=== PATIENT | female | born 1980 | race Caucasian/White ===

== ENCOUNTER → 2020-05-13 13:37 | Outpatient (CLI) | payer OTHER, SELFPAY ==
--- NOTE | ~2020-05-13 | MM_ITS ---
EXAMINATION: MM screening ana maría BI w murray HISTORY: Screening mammogram TECHNIQUE: Craniocaudal and mediolateral oblique 3-D tomosynthesis images were obtained and synthetic 2-D images were generated. CAD analysis was submitted and interpreted. COMPARISON: 01/25/2019 bilateral digital screening mammogram BREAST PARENCHYMAL COMPOSITION: There are scattered areas of fibroglandular density. FINDINGS: There is stable fibroglandular asymmetry, the breast parenchyma uniformly mildly increased in prominence compared to 01/25/2019. There is no evidence of suspicious mass, calcification, or sara ectural distortion to suggest malignancy in either breast. There has been no suspicious interval martin ge. IMPRESSION: 1. No mammographic evidence of malignancy. 2. Recommend routine screening mammography in one year. BI-RADS Category 2: Benign finding(s). Reviewed, dictated and finalized at location A.
== END ==
PROVIDERS: PCP Nurse Practitioner Family; Visit Provider Nurse Practitioner Obstetrics & Gynecology
DX: Z12.31 Encounter for screening mammogram for malignant neoplasm of breast (principal)
CPT/HCPCS: 77063; 77067

== ENCOUNTER → 2021-04-05 15:23 | Outpatient (CLI) | payer OTHER, SELFPAY ==
--- NOTE | ~2021-04-05 | US_ITS ---
EXAMINATION: US thyroid DATE: 04/05/2021 15:41 INDICATION: Nontoxic goiter, unspecified. TECHNIQUE: Multiple ultrasound images of the thyroid were obtained. COMPARISON: None. FINDINGS: The right thyroid lobe measures 4.3 x 1.5 x 1.5 cm. The left thyroid lobe measures 4.2 x 1.6 x 1.3 c m. The thyroid demonstrates diffusely heterogeneous hypoechogenicity. Vascularity is normal. IMPRESSION: 1. Heterogeneous thyroid, likely chronic lymphocytic (Paige) thyroiditis. Reviewed, dictated and finalized at location A.
== END ==
PROVIDERS: Visit Provider Internal Medicine Endocrinology, Diabetes & Metabolism
DX: E04.9 Nontoxic goiter, unspecified (principal)
CPT/HCPCS: 76536

== ENCOUNTER → 2021-05-16 12:52 | Outpatient (CLI) | payer OTHER, SELFPAY ==
--- NOTE | ~2021-05-16 | MM_ITS ---
EXAMINATION: MM screening ana maría BI w murray HISTORY: Screening mammogram TECHNIQUE: Craniocaudal and mediolateral oblique 3-D tomosynthesis images were obtained and synthetic 2-D images were generated. CAD analysis was submitted and interpreted. COMPARISON: 05/13/2020, 01/25/2019 bilateral digital screening mammogram examinations BREAST PARENCHYMAL COMPOSITION: There are scattered areas of fibroglandular density. FINDINGS: There is no evidence of suspicious mass, calcification, or architectural distortion to sugg est malignancy in either breast. There has been no suspicious interval change. IMPRESSION: 1. No mammographic evidence of malignancy. 2. Recommend routine screening mammography in one year. BI-RADS Category 1: Negative Reviewed, dictated and finalized at location A.
== END ==
PROVIDERS: PCP Nurse Practitioner Family; Visit Provider Nurse Practitioner Obstetrics & Gynecology
DX: Z12.31 Encounter for screening mammogram for malignant neoplasm of breast (principal)
CPT/HCPCS: 77063; 77067

== ENCOUNTER → 2022-10-14 11:22 | Outpatient (CLI) | payer OTHER, SELFPAY ==
--- NOTE | ~2022-10-14 | MM_ITS ---
EXAMINATION: MM screening ana maría BI w murray HISTORY: Screening mammogram TECHNIQUE: Craniocaudal and mediolateral oblique 3-D tomosynthesis images were obtained and synthetic 2-D images were generated. CAD analysis was submitted and interpreted. COMPARISON: 05/16/2021, 05/13/2020, 01/25/2019 bilateral screening mammogram examinations BREAST PARENCHYMAL COMPOSITION: There are scattered areas of fibroglandular density. FINDINGS: There is no evidence of suspicious mass, calcification, or architectural distortion to sugg est malignancy in either breast. There has been no suspicious interval change. IMPRESSION: 1. No mammographic evidence of malignancy. 2. Recommend routine screening mammography in one year. BI-RADS Category 1: Negative Reviewed, dictated and finalized at location A. 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
== END ==
PROVIDERS: PCP Nurse Practitioner Obstetrics & Gynecology; Visit Provider Nurse Practitioner Obstetrics & Gynecology
DX: Z12.31 Encounter for screening mammogram for malignant neoplasm of breast (principal)
CPT/HCPCS: 77063; 77067

== ENCOUNTER → 2023-10-20 07:44 | Outpatient (CLI) | payer OTHER, SELFPAY ==
--- NOTE | ~2023-10-20 | MM_ITS ---
EXAMINATION: MM screening ana maría BI w murray HISTORY: Screening TECHNIQUE: Craniocaudal and mediolateral oblique 3-D tomosynthesis images were obtained and synthetic 2-D images were generated. CAD analysis was submitted and interpreted. COMPARISON: Comparison to multiple prior studies sequentially, with oldest reviewed study dated 05/13. BREAST PARENCHYMAL COMPOSITION: Not dense: There are scattered areas of fibroglandular density. FINDINGS: There is focal nodular asymmetry in the upper aspect of the right breast on MLO view. The l eft breast is stable without evidence for malignancy. IMPRESSION: 1. Nodular asymmetry upper aspect of the right breast on MLO view. 2. Additional mammographic views and possible breast ultrasound are recommended. BI-RADS Category 0: Incomplete: Needs additional imaging evaluation. Reviewed, dictated and finalized at location A. [employer] IMPRESSION: 1. Nodular asymmetry upper aspect of the right breast on MLO view. 2. Additional mammographic views and possible breast ultrasound are recommended . BI-RADS Category 0: Incomplete: Needs additional imaging evaluation.
== END ==
PROVIDERS: PCP Family Medicine; Visit Provider Nurse Practitioner Obstetrics & Gynecology
DX: Z12.31 Encounter for screening mammogram for malignant neoplasm of breast (principal); R92.8 Other abnormal and inconclusive findings on diagnostic imaging of breast
CPT/HCPCS: 77063; 77067

== ENCOUNTER 2023-11-22 08:16 | Outpatient (CLI) | payer OTHER, SELFPAY ==
--- NOTE | ~2023-11-22 | MMUS_ITS ---
EXAMINATION: MM diagnostic ana maría RT w murray, US breast RT limited HISTORY: Nodular asymmetry in the upper aspect of the right breast on screening MLO view of October 20, 2023 TECHNIQUE: Additional 3-D tomosynthesis images of the right breast were performed and synthetic 2-D i mages were generated. CAD analysis was submitted and interpreted. High resolution upper outer quadran t right breast ultrasound was performed. COMPARISON: October 20, 2023, October 14, 2022, May 16, 2021 bilateral screening mammogram ex aminations FINDINGS: MAMMOGRAPHIC FINDINGS: Subtle increased density and possible architectural distortion is questioned in the upper outer quadr ant of the right breast. ULTRASOUND: 10-11:00 5 cm from nipple: There is a subtle approximately 1 x 2 mm focal irregular anti-parallel hyp oechoic area with posterior shadowing. Ultrasound-guided biopsy is recommended IMPRESSION: 1. Subtle focal anti-parallel approximately 1 x 2 mm hypoechoic lesion with posterior shadowing at ri ght breast at 10-11 o'clock 5 cm from nipple 2. Ultrasound-guided biopsy of right breast 10-11 o'clock lesion is recommended BI-RADS category 4, suspicious findings. Reviewed, dictated and finalized at location A. IMPRESSION: 1. Subtle focal anti-parallel approximately 1 x 2 mm hypoechoic lesion with pos terior shadowing at right breast at 10-11 o'clock 5 cm from nipple 2. Ultrasound-guided biopsy of right breast 10-11 o'clock lesion is recommended BI-RADS category 4, suspicious findings.
== END 2023-11-22 08:17 ==
PROVIDERS: PCP Nurse Practitioner Obstetrics & Gynecology; Visit Provider Nurse Practitioner Obstetrics & Gynecology
DX: N63.0 Unspecified lump in unspecified breast (principal); R92.8 Other abnormal and inconclusive findings on diagnostic imaging of breast
CPT/HCPCS: 76642; 77061; 77065; G0279

== ENCOUNTER 2024-11-14 00:44 | Day surgery (SDC) | payer OTHER, SELFPAY ==
[2024-11-06 10:05] VITALS: BMI 47.2
--- OUTSIDE RECORDS SUMMARY | 2024-11-14 00:47 | XMS_ITS | Data Portability ---
Author Organization [place] [facility], [employer] Address [address] [place] [address] Care Team Providers Care Cash Sales Audit Clerk Name Role Phone TORRIE BELLE Medical Office Scheduler ITALO FERNANDEZ Orthopedic Surgeon Assessment Encounter Date Assessment Date Assessment LastModified by Organization Details LastModified Time 06/10/2021 06/10/2021 Medication Changes Signs and symptoms of when to seek further care reviewed with patient. Patient to follow up with primary care provider or return to clinic for any worsening signs and symptoms. Patient verbalized agreement and understanding of treatment plan. F/U 6 months, sooner if needed [email or web address] Not available 06/10/2021 09:19:30 12/30/2021 12/30/2021 Medication Changes D/C Ubrelvy as it is not helping. Nurtec 75 mg Signs and symptoms of when to seek further care reviewed with patient. Patient to follow up with primary care provider or return to clinic for any worsening signs and symptoms. Patient verbalized agreement and understanding of treatment plan. F/U 6 months, sooner if needed [email or web address] Not available 12/30/2021 10:05:34 07/07/2022 07/07/2022 Medication Changes Had labs done at [facility]. Requested results from [facility]. Signs and symptoms of when to seek further care reviewed with patient. Patient to follow up with primary care provider or return to clinic for any worsening signs and symptoms. Patient verbalized agreement and understanding of treatment plan. F/U 6 months, sooner if needed [email or web address] Not available 07/07/2022 09:13:28 01/05/2023 01/05/2023 Medication Changes Signs and symptoms of when to seek further care reviewed with patient/caregive r/family/facilit y staff. Patient to follow up with primary care provider or return to clinic for any worsening signs and symptoms. Always present to ER or Urgent Care with any progression of/alarming symptoms, significant changes in symptoms or any concerning or urgent matters. Patient/caregive r/family/facilit y staff verbalized agreement and understanding of treatment plan. F/U 6 months, sooner if needed My total encounter time was 30 minutes which was spent in the activities documented in the note. This includes time spent prior to the visit, performing a medically appropriate examination with evaluation, and after the visit in direct care of the patient (history and exam; ordering prescriptions/la bs/imaging/home health/therapy/s pecialists; communicating results to patient and/or other relative individuals; counseling/educa ting patient; documenting clinical information in patient s chart; coordination of care for the patient). This time does not include time spent in any separately reportable services. [email or web address] Not available 01/05/2023 09:18:49 06/21/2023 06/21/2023 Medication Changes Counseled patient that if any worsening s/sx occur to contact office especially given that s/p COVID many are having worsening mental health conditions. Pt v/u. Signs and symptoms of when to seek further care reviewed with patient/caregive r/family/facilit y staff. Patient to follow up with primary care provider or return to clinic for any worsening signs and symptoms. Always present to ER or Urgent Care with any progression of/alarming symptoms, significant changes in symptoms or any concerning or urgent matters. Patient/caregive r/family/facilit y staff verbalized agreement and understanding of treatment plan. F/U 6 months, sooner if needed My total encounter time was 30 minutes which was spent in the activities documented in the note. This includes time spent prior to the visit, performing a medically appropriate examination with evaluation, and after the visit in direct care of the patient (history and exam; ordering prescriptions/la bs/imaging/home health/therapy/s pecialists; communicating results to patient and/or other relative individuals; counseling/educa ting patient; documenting clinical information in patient s chart; coordination of care for the patient). This time does not include time spent in any separately reportable services. [email or web address] Not available 06/21/2023 15:59:44 Plan of Treatment Reminders Order Date Submit Date Provider Last Modified By Organization Details Last Modified Time Details Appointments None recorded. Lab None recorded. Referral None recorded. Procedures None recorded. Surgeries None recorded. Imaging None recorded. Medication Orders vilazodone 40 mg tablet 2022 023 [email or web address] [facility] #01442, [address] [place], [place], [id number], 5 20:04:49 vilazodone 40 mg tablet 2022 023 [email or web address] [facility] #15004, [address] [place] [address], [id number], 5 20:04:49 propranolol 80 mg tablet 2022 023 [email or web address] [facility] #23865, [address] [place] [address], [id number], 5 20:04:44 propranolol 80 mg tablet 2021 022 [email or web address] [facility] #44550, [address] [place] [address], [id number], 5 20:04:44 Viibryd 40 mg tablet 2021 022 [email or web address] [facility] #46114, [address] [place] [address], [id number], 5 20:04:49 Viibryd 40 mg tablet 2021 022 [email or web address] [facility] #33768, [address] [place], [place], [id number], 5 20:04:49 propranolol 80 mg tablet 2021 022 [email or web address] [facility] #37081, [address] [facility] [place], [place], [id number], 5 20:04:44 Nurtec ODT 75 mg disintegrat ing tablet [email or web address] [place] [address] [facility][id number], [address] [facility], [place], [place], [id number], 13:04:17 Viibryd 40 mg tablet [email or web address] [place] [address] [facility] #48639, [address] [facility], [place], [place], [id number], 20:04:49 propranolol 80 mg tablet [email or web address] [place] [address] [facility] #39489, [address] [facility], [place], [place], [id number], 20:04:44 Patient TargetsNo targets recorded. Patient Instructions Encounter Date Encounter Id Patient Instructions Last Modified By Organization Details Last Modified Time 06/10/2021 [id number] weight managemen t education [email or web address] Not available 06/10/2021 09:20:42 12/30/2021 [id number] weight managemen t education [email or web address] Not available 12/30/2021 10:07:56 Learning About Weight-Loss (Bariatric) Surgery Not available 12/30/2021 10:07:56 Reason for Referral None Reported. Results Created Date Observation Date Name Description Value Unit Range Abnormal Flag Note LastModifiedBy Organization Detail LastModifiedTime Result Notes None recorded. Problems Name Problem SNOMED Code Status Onset Date Resolution Date Notes Provider Name and Address Organization Details Recorded Time Hypothyroidism 13208243 Active 2019 NORTH Portillo, PMHNP-BC [address] [place], [address], [place] [facility] 3 15:30:46 Anxiety 14006306 Active 2019 NORTH Portillo, PMHNP-BC [address], [place], [address] [place] [address] 4, [facility] 3 15:30:46 Hypomagnesemia 788630741 Active 2019 REMA PortilloBC, PMHNP-BC [address] , [place], [place], [address] [place] [address] 4, [facility] 3 15:30:45 Hyperlipidemia 74393312 Active 2019 REMA PortilloBC, PMHNP-BC [address] , [place], [place], [address] [place] [address] 4, [facility] 3 15:30:46 Vitamin D deficiency 86126801 Active 2019 NORTH Portillo, PMHNP-BC [address] [place], [place], [address] [place] [address] 4, [facility] 3 15:30:46 Major depressive disorder 470739446 Active 2018 STEFFANIE Portillo-BC, PMHNP-BC [address] [place], [place], [address] [place] [address] 4, [facility] 3 15:30:46 Migraine 56494295 Active 2018 STEFFANIE Portillo-BC, PMHNP-BC [address] [place], [place], [address] [place] [address] 4, [facility] 3 15:30:46 Problem Notes None recorded. Procedures Surgical History Date Name Laterality Status Provider Name and Address Organization Details Recorded Time Appendectomy completed Deepali Handy [employer]NA[employer]-BC, PMHNP-BC [address] [place], [address], [facility] 06/08/2019 14:40:35 tonsillectomy completed Deepali Handy [employer]NAGER [employer]-BC, PMHNP-BC [address] [place], [address], [facility] 06/08/2019 14:40:43 release of trigger finger completed Deepali Khanna Ole [employer]NA[employer]-BC, PMHNP-BC [address] , [place], [address], [facility] 06/08/2019 14:40:51 Elbow arthroscopy completed Deepali Handy, MANAGER [employer]-BC, PMHNP-BC [address] [place], [address], [facility] 06/08/2019 14:40:59 Imaging Results None recorded. Procedure Notes None recorded. Medical Equipment None Reported. Allergies No known drug allergies Medications Name Sig Start Date Stop Date Status Note LastModified by Organization Details LastModified Time Prescriptio n - Prior Authorizati on Request 12/09 completed Not Available Not Available Not Available multivitami n tablet Take 1 tablet every day by oral route. 06/04 completed Not Available Not Available Not Available fluoxetine 40 mg capsule Take 2 capsules every day by oral route for 30 days. 07/04 completed Not Available Not Available Not Available amoxicillin 500 mg capsule TAKE ONE CAPSULE BY MOUTH EVERY 6 HOURS UNTIL ALL TAKEN 12/09 completed Not Available Not Available Not Available propranolol 80 mg tablet TAKE 1 TABLET BY MOUTH TWICE DAILY 09/22 completed Not Available Not Available Not Available cyanocobala min (vit B-12) 2,500 mcg sublingual tablet DISSOLVE 1 TABLET UNDER THE TONGUE EVERY DAY IN THE MORNING 06/04 completed Not Available Not Available Not Available azithromyci n 250 mg tablet TAKE 2 TABLETS (500 MG) BY ORAL ROUTE ONCE DAILY FOR 1 DAY THEN 1 TABLET (250 MG) BY ORAL ROUTE ONCE DAILY FOR 4 DAYS 06/10 completed Not Available Not Available Not Available meloxicam 15 mg tablet TAKE 1 TABLET BY MOUTH EVERY DAY 07/07 completed Not Available Not Available Not Available Synthroid 125 mcg tablet Take 1 tablet every day by oral route. 09/22 completed Not Available Not Available Not Available Synthroid 100 mcg tablet Take 1 tablet every day by oral route. 07/07 completed Not Available Not Available Not Available phentermine 37.5 mg tablet TAKE 1 TABLET BY MOUTH EVERY DAY 01/05 completed Not Available Not Available Not Available levothyroxi ne 25 mcg tablet TAKE 1 AND 1/2 TABLETS BY MOUTH EVERY MORNING AT LEAST 30 MINUTES BEFORE EATING/DR INKING 12/10 completed Not Available Not Available Not Available levothyroxi ne 75 mcg tablet TAKE 1 TABLET BY MOUTH EVERY DAY BEFORE MEAL 03/26 completed Not Available Not Available Not Available levothyroxi ne 88 mcg tablet TAKE 1 TABLET BY MOUTH EVERY DAY BEFORE MEALS 06/10 completed Not Available Not Available Not Available benzonatate 100 mg capsule TAKE 1 CAPSULE BY MOUTH THREE TIMES DAILY NEEDED 06/10 completed Not Available Not Available Not Available dexamethaso ne 2 mg tablet TAKE 3 TABLETS BY MOUTH EVERY DAY FOR 10 DAYS 06/10 completed Not Available Not Available Not Available levothyroxi ne 50 mcg tablet TAKE 1 TABLET BY MOUTH EVERY DAY 01/22 completed Not Available Not Available Not Available cyanocobala min (vit B-12) 1,000 mcg/mL injection solution ADMINISTE R 1 ML UNDER THE SKIN EVERY WEEK DIRECTED 06/04 completed Not Available Not Available Not Available Low-Ogestre l (28) 0.3 mg-30 mcg tablet 06/08 completed Not Available Not Available Not Available albuterol sulfate HFA 90 mcg/actuati on aerosol inhaler INHALE 2 PUFFS BY MOUTH EVERY 4 HOURS NEEDED 06/10 completed Not Available Not Available Not Available cholecalcif kar (vitamin D3) 125 mcg (5,000 unit) capsule Take 1 capsule every day by oral route. 06/04 completed Not Available Not Available Not Available vilazodone 40 mg tablet TAKE 1 TABLET BY MOUTH EVERY DAY WITH A MEAL 09/22 completed Not Available Not Available Not Available TRUEplus Insulin 1 mL 31 gauge x 5/16 syringe DIRECTED 06/04 completed Not Available Not Available Not Available Blisovi Fe 09/15 (28) 1 mg-20 mcg (21)/75 mg (7) tablet TAKE 1 TABLET BY MOUTH EVERY DAY DIRECTED 09/22 completed Not Available Not Available Not Available Norlyda 0.35 mg tablet TAKE 1 TABLET BY MOUTH EVERY DAY 01/05 completed Not Available Not Available Not Available magnesium 400 mg (as magnesium oxide) tablet Take 1 tablet every day by oral route. 06/10 completed Not Available Not Available Not Available Ubrelvy 100 mg tablet 12/30 completed Not Available Not Available Not Available Nurtec ODT 75 mg disintegrat ing tablet 06/04 completed Not Available Not Available Not Available Vitals Date Recorded Body height Heart rate Respiratory rate Oxygen saturation Oxygen saturation in Arterial blood by Pulse oximetry Body temperature Systolic blood pressure Diastolic blood pressure Provider Name and Address Organization Details Last Updated DateTime 1 154.94 cm 73 /min 16 /min 97 % 97 % 98.2 [degF] 134 mm[Hg] 80 mm[Hg] Shamyra Fessenden [facility] 1 09:11:29 Date Recorded Body mass index (BMI) Body weight Provider Name and Address Organization Details Last Updated DateTime 06/10/2021 47.8 kg/m2 772915.87 g Crystal Clemencia Handy, MANAGER DECISION SUPPORT-BC, PMHNP-BC [address] [place], [address], [facility] 06/10/2021 09:20:17 Date Recorded Body height Body temperature Oxygen saturation Oxygen saturation in Arterial blood by Pulse oximetry Heart rate Respiratory rate Body mass index (BMI) Body weight Systolic blood pressure Diastolic blood pressure Provider Name and Address Organization Details Last Updated DateTime 2 154.94 cm 98 [degF] 98 % 98 % 72 /min 20 /min 47.3 kg/m2 307810. 81 g 130 mm[Hg] 72 mm[Hg] Alva Javier [facility] 2 09:26:51 Date Recorded Body height Body temperature Pain severity - 0-10 verbal numeric rating [Score] - Reported Oxygen saturation Oxygen saturation in Arterial blood by Pulse oximetry Respiratory rate Heart rate Body mass index (BMI) Body weight Systolic blood pressure Diastolic blood pressure Provider Name and Address Organization Details Last Updated DateTime 2 154.94 cm 98 [degF] 0 99 % 99 % 16 /min 70 /min 43.9 kg/m2 134349. 15 g 116 mm[Hg] 70 mm[Hg] Alva Javier [facility] 2 08:56:12 Date Recorded Body height Body mass index (BMI) Body weight Pain severity - 0-10 verbal numeric rating [Score] - Reported Respiratory rate Oxygen saturation Oxygen saturation in Arterial blood by Pulse oximetry Body temperature Heart rate Systolic blood pressure Diastolic blood pressure Provider Name and Address Organization Details Last Updated DateTime 3 154.94 cm 47.2 kg/m2 545591. 09 g 0 16 /min 99 % 99 % 98.1 [degF] 80 /min 125 mm[Hg] 80 mm[Hg] Betty Attila [facility] 3 09:04:21 Date Recorded Body height Provider Name an d Address Organization Details Last Updated DateTime 06/21/2023 154.94 cm Deepali Handy , MANAGER DECISION SUPPORT-BC, PMHNP-BC [address] [place], [address], [facility] 06/21/2023 15:40:09 Social History Question Answer Notes LastModified by Organizat ion Details LastModified Time Tobacco Smoking Status Former Smoker Not Available [employer] 06/22/2020 03:13:56 Do You Have An Advance Directive? No [id number] Information not available 06/22/2020 What Is Your Level Of Alcohol Consumption? Occasional [id number] Information not available 06/22/2020 Are You Currently Sexually Active With Anyone Who Has Traveled (within The Last 12 Weeks) To A Zika-affected Area? No [email or web address] Information not available 12/30/2021 Do You Wear A Helmet When Biking? Yes [email or web address] Information not available 06/10/2021 Are You Blind Or Do You Have Difficulty Seeing? No Information not available 06/10/2021 Is Blood Transfusion Acceptable In An Emergency? Yes [email or web address] Information not available 07/07/2022 What Is Your Level Of Caffeine Consumption? Occasional [id number] Information not available 06/22/2020 How Much Tobacco Do You Chew? None [id number] Information not available 06/22/2020 What Type Of Racehorse Trainer Do You Use? None Information not available 12/30/2021 What Is Your Code Status? Full Code [email or web address] Information not available 06/10/2021 In The 14 Days Before Symptom Onset, Have You Had Close Contact With A Laboratory-confir med COVID-19 While That Case Was Ill? No [email or web address] Information not available 12/30/2021 In The 14 Days Before Symptom Onset, Have You Had Close Contact With A Person Who Is Under Investigation For COVID-19 While That Person Was Ill? No [email or web address] Information not available 12/30/2021 Have You Been To An Area Known To Be High Risk For COVID-19? No [email or web address] Information not available 12/30/2021 Are You Currently Employed? Yes Information not available 06/10/2021 Are You Deaf Or Do You Have Serious Difficulty Hearing? No [email or web address] Information not available 06/10/2021 What Type Of Diet Are You Following? REGULAR [email or web address] Information not available 06/10/2021 Which Illicit Or Recreational Drugs Have You Used? None [id number] Information not available 06/22/2020 Have You Processed Blood Or Body Fluids From An Ebola Virus Disease Patient Without Appropriate PPE? No [email or web address] Information not available 12/30/2021 Do You Reside In Or Have You Traveled To An Area Where Ebola Virus Transmission Is Active? No [email or web address] Information not available 12/30/2021 Do You Or Have You Ever Used E-cigarettes Or Vape? Current User Of Electronic Cigarettes [id number] Information not available 06/22/2020 What Is The Highest Grade Or Level Of School You Have Completed Or The Highest Degree You Have Received? [id number] [email or web address] Information not available 12/30/2021 What Is Your Occupation? [employer] [id number] Information not available 06/22/2020 Have There Been Any Changes To Your Family Or Social Situation? No Information no t available 06/10/2021 What Is The Fluoride Status Of Your Home? Unknown [email or web address] Information not available 12/30/2021 Are There Any Guns Present In Your Home? No [email or web address] Information not available 06/10/2021 Which Of Your Hands Is Dominant? Right [email or web address] Information not available 07/07/2022 Have You Recently Or Are You Planning To Travel To An Area With Zika Virus? No [email or web address] Information not available 12/30/2021 Single Or Multi-level Home/work? Single Level Home [email or web address] Information not available 06/08/2019 Do You Use Insect Repellent Routinely? Yes [email or web address] Information not available 06/10/2021 Live Alone Or With Others? Alone [email or web address] Information not available 06/08/2019 Marital Status Single [email or web address] Informatio n not available 06/08/2019 Do You Have A Medical Power Of Track Repairer? No [email or web address] Information not available 06/10/2021 What Was The Date Of Your Most Recent Tobacco Screening? 06/21/2023 Information not available 06/21/2023 How Many Children Do You Have? 0 [email or web address] Information not available 12/30/2021 Have You Ever Been Counseled For Unhealthy Alcohol Use? No [email or web address] Information not available 06/21/2023 Do You Have Any Pets? Yes [email or web address] Information not available 12/30/2021 What Is Your Relationship Status? Single [email or web address] Information not available 12/30/2021 Do You Use Your Seat Belt Or Car Seat Routinely? Yes [email or web address] Information not available 06/10/2021 Are You Sexually Active? No Information not available 12/30/2021 Do You Have Smoke And Carbon Monoxide Detectors In Your Home? Yes [email or web address] Information not available 06/10/2021 Are You Passively Exposed To Smoke? No [email or web address] Information no t available 06/10/2021 Do You Or Have You Ever Used Smokeless Tobacco? Never Used Smokeless Tobacco [id number] Information not available 06/22/2020 How Much Tobacco Do You Smoke? 0.5 PPD [id number] Information not available 06/22/2020 Do You Participate In Social Media? Yes [email or web address] Information not available 07/07/2022 Do You Feel Stressed (tense, Restless, Nervous, Or Anxious, Or Unable To Sleep At Night)? [id number] [email or web address] Information not available 06/10/2021 Do You Use Any Illicit Or Recreational Drugs? No [email or web address] Information not available 06/10/2021 Do You Use Sunscreen Routinely? Yes [email or web address] Information not available 06/10/2021 How Many Years Have You Smoked Tobacco? 20 [id number] Information not available 06/22/2020 Have You Recently Traveled Abroad? No [email or web address] Information not available 12/30/2021 Are You Currently In School? No [email or web address] Information not available 06/10/2021 Do You Have Any Dietary Restrictions? No [email or web address] Information not available 06/10/2021 Do You Or Have You Ever Used Any Other Forms Of Tobacco Or Nicotine? No Information not available 06/10/2021 Sex: Female Functional Status Question Answer Note LastModified by Organizat ion Details LastModified Time Do you have difficulty walking or climbing stairs? No [email or web address] Information not available 06/10/2021 Do you have transportation difficulties? No [email or web address] Information not available 06/10/2021 Are you able to walk? YESWOREST [id number] Information not available 06/22/2020 Do you have difficulty doing errands alone? No [email or web address] Information not available 06/10/2021 Are you able to care for yourself? Yes [email or web address] Information n ot available 06/10/2021 Do you have difficulty dressing or bathing? No [email or web address] Information not available 06/10/2021 What is your exercise level? Occasional [email or web address] Information not available 06/10/2021 Mental Status Question Answer Note LastModified by Organization D etails LastModified Time Do you have difficulty concentrating, remembering or making decisions? No Information no t available 06/10/2021 Family History Relationship Description Onset Age of this Age Resolved Age Notes LastModified by Organization Details LastModified Time Father Migraine [email or web address] Not available 06/08/2019 14:35:13 Father History of hypertension [email or web address] Not available 14:37:52 Paternal Grandmother Migraine [email or web address] Not available 05/27 14:35:13 Paternal Grandmother Family history of malignant neoplasm Lung and Prosta te Cancer [email or web address] Not available 06/08/2019 14:39:25 Sister Migraine [email or web address] Not available 06/08/2019 14:35:13 Sister Family history of Depression [email or web address] Not available 06/08 14:37:20 Maternal Grandmother Cerebrovascu lar accident [email or web address] Not available 14:35:29 Paternal Grandfather Family history of malignant neoplasm [email or web address] Not available 2018 14:35:57 Maternal Grandfather Coronary atherosclero sis [email or web address] Not available 2018 14:36:33 Mother Family history of Depression [email or web address] Not available 06/08 14:37:32 Mother Family history of Anxiety state [email or web address] Not available 2018 14:38:19 Mother Atrial fibrillation [email or web address] Not available 14:38:35 Medical History Condition Response Depression Y Anxiety Disorder Y Endocrine Diseases / Disorders Y Infectious Disease/Disorders/Virus Y Gynecological HistoryNo gynecological history recorded. Obstetrics History GPAL:G 0 P 0 0 0 0 Immunizations Vaccine Type Date Status Note Provider Nam e and Address Organization Details Recorded Time Influenza, split virus, quadrivalent, preservative 9 completed [facility] [address] [place], [address], [facility] 06/08/2019 14:36:54 COVID-19, mRNA, LNP-S, PF, 30 mcg/0.3 mL dose 1 [facility] 09:31:03 COVID-19, mRNA, LNP-S, PF, 30 mcg/0.3 mL dose 1 [facility] 09:31:41 Past Encounters Encounter ID Performer Location Encounter Start Date Encounter Closed Date Diagnosis/Indication Diagnosis SNOMED-CT Code Diagnosis ICD10 Code Diagnosis Note [id number] NORTH Portillo, PMHNP- Main Office [address] [place] [address] 06/08/2019 10:32:08 06/08/2019 15:38:01 Migraine [id number] G43.909 Counseled on multiple other options for treatment with Propranolo l or Verapamil. Patient has used Topamax, Imitrex which have not provided any relief. It can take several weeks for headache improvemen t to accrue with these drugs; the dose should be titrated and maintained for at least three months before deeming the medication a failure. Amitriptyl ine is the only tricyclic that has proven efficacy for migraine which is started at 10 mg q HS. Going to obtain labs and then start Propranolo l. Major depr essive disorder [id number] F32.9 Counseled on other options regarding medication changes. Counseled on other options and looking at changing to Viibryd as SSRIs are not working. Patient has reported she wants off Prozac which was dismissed by [facility]. Will provide samples of Viibryd after lab work. Screening for cardiovascular system disease [id number] Z13.6 Fatigue [id number] R53.83 Hypomagnesemia 994798103 E83.42 Anxiety 87152363 F41.9 [id number] Deepali SarahClaire Handy [facility], [facility] Main Office [address] [place] [address] 06/10/2020 16:10:11 06/10/2020 16:49:19 Migraine [id number] G43.909 Counseled on multiple other options for treatment with Propranolo l or Verapamil. Patient has used Topamax, Imitrex which have not provided any relief. It can take several weeks for headache improvemen t to accrue with these drugs; the dose should be titrated and maintained for at least three months before deeming the medication a failure. Amitriptyl ine is the only tricyclic that has proven efficacy for migraine which is started at 10 mg q HS. Going to obtain labs and then start Propranolo l. Major depr essive disorder [id number] F32.9 Counseled on other options regarding medication changes. Counseled on other options and looking at changing to Viibryd as SSRIs are not working. Patient has reported she wants off Prozac [facility] Will provide samples of Viibryd after lab work. Hypomagnesemia [id number] E83.42 Hypothyroidism 85428733 E03.9 Vitamin D deficiency 347 83933 E55.9 Hyperlipidemia 42273280 E78.5 Body mass index 40+ - severely obese [id number] Z68.41 [id number] Deepali SmithClaire Handy [facility] Main Office [address] [place] [address] 12/09/2020 15:49:47 12/09/2020 16:41:39 Migraine [id number] G43.909 Major depr essive disorder 082656194 F32.9 At this time patient is {{asymptom atic* symp tomatic}}; symptoms are {{stable* unstable}} . Patient denies suicidal or homicidal ideation. Plan to {{begin medication therapy co ntinue current management * adjust dose of medication change medication add medication discontin ue medication }} . [facility]}}; patient also referred to counseling services and community resources. Patient was advised to call or come in if symptoms {{develop persist wo rsen*}}. Patient verbalized understand ing. Hypothyroidism 19538098 E03.9 [id number] Deepali Handy [facility], [facility] Main Office [address] [address] 06/10/2021 09:02:47 06/10/2021 09:51:55 Migraine [id number] G43.909 Major depr essive disorder 812726396 F32.9 At this time patient is {{asymptom atic* symp tomatic}}; symptoms are {{stable* unstable}} . Patient denies suicidal or homicidal ideation. Plan to {{begin medication therapy co ntinue current management * adjust dose of medication change medication add medication discontin ue medication }} . [facility]; patient also referred to counseling services and community resources. Patient was advised to call or come in if symptoms {{develop persist wo rsen*}}. Patient verbalized understand ing. Body mass index 40+ - severely obese [id number] Z68.42 18368 Deepali Handy [facility] Main Office [address] [place] [address] 12/30/2021 09:23:52 12/30/2021 11:25:04 Migraine [id number] G43.909 [facility]. Major depr essive disorder 281408432 F32.9 At this time patient is {{asymptom atic* symp tomatic}}; symptoms are {{stable* unstable}} . Patient denies suicidal or homicidal ideation. Plan to {{begin medication therapy co ntinue current management * adjust dose of medication change medication add medication discontin ue medication }} . [facility]; patient also referred to counseling services and community resources. Patient was advised to call or come in if symptoms {{develop persist wo rsen*}}. Patient verbalized understand ing. Body mass index 40+ - severely obese [id number] Z68.42 Discussed weight loss surgical options. [id number] Deepali Handy [facility] Main Office [address] [place] [address] 07/07/2022 08:50:13 07/07/2022 09:55:36 Mig[facility] [id number] G43.909 [facility]. Major depr essive disorder 895497594 F32.9 At this time patient is {{asymptom atic* symp tomatic}}; symptoms are {{stable* unstable}} . Patient denies suicidal or homicidal ideation. Plan to {{begin medication therapy co ntinue current management * adjust dose of medication change medication add medication discontin ue medication }} . Plan to {{refer patient to [facility] patient at follow up*}}; patient also referred to counseling services and community resources. Patient was advised to call or come in if symptoms {{develop persist wo rsen*}}. Patient verbalized understand ing. Body mass index 40+ - severely obese 361200072 Z68.41 Discussed Ozempic regarding weight loss. Discussed the medication to include purpose, admin, SE, AR, risks, benefits, outcome.Elenita rojas is going to contact [facility] about possibly compoundin g the medication and cost to determine if it is something she wants to pursue. If she obtains informatio n and all sounds good will order. [id number] Deepali Handy [facility] Main Office [address] [place] [address] 01/05/2023 08:55:17 01/05/2023 14:33:39 Migraine [id number] G43.909 [facility]. Major depr essive disorder 551628845 F32.9 At this time patient is {{asymptom atic* symp tomatic}}; symptoms are {{stable* unstable}} . Patient denies suicidal or homicidal ideation. Plan to {{begin medication therapy co ntinue current management * adjust dose of medication change medication add medication discontin ue medication }} . Plan [facility]}}; patient also referred to counseling services and community resources. Patient was advised to call or come in if symptoms {{develop persist wo rsen*}}. Patient verbalized understand ing. Body mass index 40+ - severely obese [id number] Z68.42 We discussed Mounjaro and the compounded formulas. [id number] Deepali Handy, MANAGER [employer]-BC, PMHNP-BC Telemedic ine [address] [place] [address] 06/21/2023 15:30:00 06/21/2023 16:23:04 Major depressive disorder 663675776 F32.9 At this time patient is {{asymptom atic* symp tomatic}}; symptoms are {{stable* unstable}} . Patient denies suicidal or homicidal ideation. Plan to {{begin medication therapy co ntinue current management * adjust dose of medication change medication add medication discontin ue medication }} . Plan to {{ref[facility] patient to [facility] patient at follow up*}}; patient also referred to counseling services and community resources. Patient was advised to call or come in if symptoms {{develop persist wo rsen*}}. Patient verbalized understand ing. Health Concerns Section Related Observation LastModified by Organization Detai ls LastModified Time None Recorded Concern Status LastModified by Organization Details LastModified Time None Recorded Advance Directives Directive N: Payers Encounter Date Sequence Insurance Name Policy Number Policy Regalado Covered Member ID Regalado Member ID Guarantor Name 06/10/2021 1 [employer] (PPO) [id number] Brenda B Spitze [id number] Brenda Odonnell Spitze 12/30/2021 1 UMR (PPO) [id number] Brenda B Spitze [id number] Brenda B Spitze 07/07/2022 1 UMR (PPO) [id number] Brenda B Spitze [id number] Brenda B Spitze 01/05/2023 1 UMR (PPO) [id number] Brenda B Spitze [id number] Brenda Odonnell Spitze 06/21/2023 1 UMR (PPO) [id number] Brenda Saldivar [id number] Brenda Saldivar Notes Date Note Type Note Provider Name and Address Organization Details Recorded Time 06/10/20 21 text/htm l Anxiety/DepressionReported bypatient.Quality:symptoms improved Severity:denies suicidal ideations; able to maintain relationships; does not interfere with activities of daily living Duration:symptoms lasting over 2 weeks Onset/Timing:gradual Context:no major life stressors Modifying Factors:medications as directed Associated Symptoms:denies homicidal ideations; no significant weight gain; no significant weight loss; no visual/auditory hallucinations; no delusions; no shortness of breath; mood good; no anxiety; no crying spells; no panic; no isolation; sleeping well; appetite good; energy good; no apathy; maintaining functionalityHeadacheReported bypatient.Location:occipital Quality:not the worst headache ever; similar to previous headaches;throbbing;radiating Severity:moderate Duration:10-15 days/month Onset/Timing:worse; gradual; still present Context:not related to trauma Aggravating factors:nothing makes it worse Alleviating factors:nothing gives relief Associated Symptoms:no vomiting; no fever; no constipation; no diarrhea; no nasal congestion/discharge; tearing/watery eyes; no confusion; no slurred speech; no double vision; normal feeling/sensation; no motor paralysis; no sleep disturbances; no nosebleeds; no hoarseness; no sore throat; no hearing loss; no eyelid edema; no weight loss;nausea;photophobia;blind spots;with preceeding aura;dizziness Deepali Handy, MANAGER [employer]BC, PMHNP-BC [address] [place], [address], [facility] 06/10/2021 09:21:18 12/31/19 22 text/htm l Anxiety/DepressionReported bypatient.Quality:symptoms improved Severity:denies suicidal ideations; able to maintain relationships; does not interfere with activities of daily living Duration:symptoms lasting over 2 weeks Onset/Timing:gradual Context:no major life stressors Modifying Factors:medications as directed Associated Symptoms:denies homicidal ideations; no significant weight gain; no significant weight loss; no visual/auditory hallucinations; no delusions; no shortness of breath; mood good; no anxiety; no crying spells; no panic; no isolation; sleeping well; appetite good; energy good; no apathy; maintaining functionalityHeadacheReported bypatient.Location:occipital Quality:not the worst headache ever; similar to previous headaches;throbbing;radiating Severity:moderate Duration:10-15 days/month Onset/Timing:worse; gradual; still present Context:not related to trauma Aggravating factors:nothing makes it worse Alleviating factors:nothing gives relief Associated Symptoms:no vomiting; no fever; no constipation; no diarrhea; no nasal congestion/discharge; tearing/watery eyes; no confusion; no slurred speech; no double vision; normal feeling/sensation; no motor paralysis; no sleep disturbances; no nosebleeds; no hoarseness; no sore throat; no hearing loss; no eyelid edema; no weight loss;nausea;photophobia;blind spots;with preceeding aura;dizziness Deepali Handy, MANAGER [employer]-BC, PMHNP-BC [address] [place], [address], [facility] 12/30/2021 10:08:46 07/07/20 22 text/htm l Anxiety/DepressionReported bypatient.Quality:symptoms improved Severity:denies suicidal ideations; able to maintain relationships; does not interfere with activities of daily living Duration:symptoms lasting over 2 weeks Onset/Timing:gradual Context:no major life stressors Modifying Factors:medications as directed Associated Symptoms:denies homicidal ideations; no significant weight gain; no significant weight loss; no visual/auditory hallucinations; no delusions; no shortness of breath; mood good; no anxiety; no crying spells; no panic; no isolation; sleeping well; appetite good; energy good; no apathy; maintaining functionalityHeadacheReported bypatient.Location:occipital Quality:not the worst headache ever; similar to previous headaches;throbbing;radiating Severity:moderate Duration:10-15 days/month Onset/Timing:worse; gradual; still present Context:not related to trauma Aggravating factors:nothing makes it worse Alleviating factors:nothing gives relief Associated Symptoms:no vomiting; no fever; no constipation; no diarrhea; no nasal congestion/discharge; tearing/watery eyes; no confusion; no slurred speech; no double vision; normal feeling/sensation; no motor paralysis; no sleep disturbances; no nosebleeds; no hoarseness; no sore throat; no hearing loss; no eyelid edema; no weight loss;nausea;photophobia;blind spots;with preceeding aura;dizziness Deepali Clemencia [facility] [address] [place], [id number] [place] [address] Primary Care 07/07/2022 09:13:59 01/06/20 text/htm l Anxiety/DepressionReported bypatient.Quality:symptoms improved Severity:denies suicidal ideations; able to maintain relationships; does not interfere with activities of daily living Duration:symptoms lasting over 2 weeks Onset/Timing:gradual Context:no major life stressors Modifying Factors:medications as directed Associated Symptoms:denies homicidal ideations; no significant weight gain; no significant weight loss; no visual/auditory hallucinations; no delusions; no shortness of breath; mood good; no anxiety; no crying spells; no panic; no isolation; sleeping well; appetite good; energy good; no apathy; maintaining functionalityHeadacheReported bypatient.Location:occipital Quality:not the worst headache ever; similar to previous headaches;throbbing;radiating Severity:moderate Duration:Improvement in episodes. Last episode a couple weeks ago. Onset/Timing:worse; gradual; still present Context:not related to trauma Aggravating factors:nothing makes it worse Alleviating factors:nothing gives relief Associated Symptoms:no vomiting; no fever; no constipation; no diarrhea; no nasal congestion/discharge; tearing/watery eyes; no confusion; no slurred speech; no double vision; normal feeling/sensation; no motor paralysis; no sleep disturbances; no nosebleeds; no hoarseness; no sore throat; no hearing loss; no eyelid edema; no weight loss;nausea;photophobia;blind spots;with preceeding aura;dizziness [facility] [address] [place], [address] 01/05/2023 09:22:23 06/21/20 text/htm l Anxiety/DepressionReported bypatient.Quality:symptoms improved Severity:denies suicidal ideations; able to maintain relationships; does not interfere with activities of daily living Context:no major life stressors Modifying Factors:medications as directed Associated Symptoms:denies homicidal ideations; no significant weight gain; no significant weight loss; no visual/auditory hallucinations; no delusions; no shortness of breath; mood good; no anxiety; no crying spells; no panic; no isolation; sleeping well; appetite good; energy good; no apathy; maintaining functionality Patient Verification & Telemedicine Based Consent. Today's visit was conducted virtually due to COVID-19 countermeasures. The patient/POA/Caregiver has given verbal consent to have today's visit conducted by this same means with treatment provided remotely. The patient/POA/Caregiver verbally consents to the billing and collection practices of the provider's medical group. Requested telemedicine visit due to COVID-19 and provided verbal consent prior to visit. Symptoms and conditions treated are done via subjective statements and explanations thus may or may not fully treat the condition given it is based on subjective statements. Video and audio conferencing performed. Deepali Handy, MANAGER [employer]-BC, PMHNP-BC [address] [place], [address], [facility] 06/21/2023 16:00:17 OBGyn Episode No OBEpisode recorded.
--- OUTSIDE RECORDS SUMMARY | 2024-11-14 00:47 | XMS_ITS | Data Portability ---
Author Organization [facility] Address [address] [place] [address] Assessment Encounter Date Assessment Date Assessment LastModified by Organization Details LastModified Time 04/01/2021 04/01/2021 Annual gynecological exam performed. Patient will come back in a year unless there are new symptoms. Not available 04/01/2021 10:26:38 05/04/2022 05/04/2022 Annual gynecological exam performed. Patient will come back in a year unless there are new symptoms. Not available 05/04/2022 11:24:29 06/29/2023 06/29/2023 Annual gynecological exam performed. Patient will come back in a year unless there are new symptoms. [email or web address] Not available 06/29/2023 09:39:20 07/04/2024 07/04/2024 Annual gynecological exam performed. Patient will come back in a year unless there are new symptoms. [email or web address] Not available 07/04/2024 09:59:37 Plan of Treatment Reminders Order Date Submit Date Provider Last Modified By Organization Details Last Modified Time Details Appointments None recorded. Lab None recorded. Referral None recorded. Procedures colonoscopy screening (PROC) [address] [facility], [address], [address], [place], [address], 4 15:40:11 Surgeries None recorded. Imaging MAMMO, screening, digital, bilateral 2023 024 [facility], [address], [place], [address], 4 04:06:27 MAMMO, screening, bilateral 2022 023 [facility], [address], [address] [address], [place], [address], 4 09:15:26 Medication Orders Blisovi Fe 1/20 (28) 1 mg-20 mcg (21)/75 mg (7) tablet 2023 024 [email or web address] [facility]44, [address], [place], [id number], 4 09:59:36 Loestrin Fe 1/20 (28-Day) 1 mg-20 mcg (21)/75 mg (7) tablet 2022 023 [facility]53615, [address], [place], [id number], 3 09:51:48 Loestrin Fe 1/20 (28-Day) 1 mg-20 mcg (21)/75 mg (7) tablet 2021 022 [facility] #04453, [address], [place], [id number], 2 12:46:35 Norlyda 0.35 mg tablet 2020 021 [email or web address] [facility] #43693, [address], [place], [id number], 2 12:45:16 Patient TargetsNo targets recorded. Patient InstructionsNo instructions recorded. Reason for Referral None Reported. Results Created Date Observation Date Name Description Value Unit Range Abnormal Flag Note LastModifiedBy Organization Detail LastModifiedTime 04/01/20 21 04/01/2021 IMAGE GUIDE D PAP AND HPV REGAR DLESS image guided Pap, HPV regardless of Pap result SEE RESULT S BELOW CASE REPOR T: Cytol ogy Gynec ologi beau Repor t Case: [id number] Autho rozina fontenot Provi lon: Sean higgins , Pablo Dominguez cted: 04/01 1355 HAND SUTURE WINDER Order ing Locat ion: [place] [facility] Recei keshia: 04/02 0058 First Scree n: Jennifer maria, C[place] , [place] Speci men: Jada tomas Pap - Image d, Cervi x STATE MENT OF ADEQU ACY: Satis facto ry for evalu ation Trans forma tion zone compo nent prese nt FINAL DIAGN OSIS: Negat laura for Intra epith elial Lesmaritza n or Leoncio reyes romero d by Jennifer maria, [place] , [place] on 021 at 4:14 PM ----- ----- ----- ----- ----- ----- ----- ----- ----- ----- ----- ----- ----- ----- ----- ----- ----- ---- HPV RESUL TS: HPV mRNA E6/E7 : No HPV mRNA Detec dee NOTE: This high risk HPV mRNA assay detec ts fourt een high- risk HPV types (16, 18, 31, 33, 35, 39, 45, 51, 52, 56, 58, 59, 66, 68) witho ut diffe renti ation . CHART ABLE COMME NT: Note: This speci men was revie wed by a Cytot echno logis t and/o r Patho logis t (as indic ated in this repor t) after evalu ation using the Thinp rep Imagi ng Syste m. CLINI BEAU INFOR MATIO N: Menst rual Statu s: LMP (if appli cable ): 2020 Clini beau Histo ry/Pr eviou s Pap: Type of Neopl joe (if appli cable ): Signi fican t Clini beau Findi ngs: Other Histo ry: Hormo vick (if appli cable ): PAP EDUCA ASHA L NOTE: The Pap Test is a scree thom test with an inher ent false negat laura rate. Liqui d-bas e sampl ing may decre ase, but will not elimi felix, false negat laura resul ts. A negat laura resul t does not precl ude the prese nce and/o r devel opmen t of disea se, since the prese nce of abnor mal cells in the sampl e depen ds on the locat ion of the lesio n and sampl ing techn ique. Bandar nued regul ar scree thom is the best metho d of cance r preve ntion . If repor dee cytol ogic findi ng do not corre late with physi beau and/o r histo rical findi ngs, furth er inves tigat ion is recom roxie d, as clini lei real nted. Not Available [facility] (Lab) [address] [facility], [place], [address], 04/04/2021 17:17:59 05/04/20 22 05/04/2022 IMAGE GUIDE D PAP AND HPV REGAR DLESS image guided Pap, HPV regardless of Pap result SEE RESULT S BELOW CASE REPOR T: Cytol ogy Gynec ologi beau Repor t Case: [id number] Autho rozina po Provi lon: Asher Cho Colle cted: 05/04 1521 HAND SUTURE WINDER Order ing Locat ion: [place] Patho logy Recei keshia: 05/05 0142 First Scree n: Aziza Bhakta , [place] Speci men: Scree thom Pap - Image d, Cervi x STATE MENT OF ADEQU ACY: Satis facto ry for evalu ation Trans forma tion zone compo nent prese nt FINAL DIAGN OSIS: Negat laura for Intra epith elial Lesio n or Leoncio stanley (NIL) . Ivan reyes romero d by Aziza Bhakta , [place] on 2021 at 9:01 AM ----- ----- ----- ----- ----- ----- ----- ----- ----- ----- ----- ----- ----- ----- ----- ----- ----- ---- HPV RESUL TS: HPV mRNA E6/E7 : No HPV mRNA Detec dee NOTE: This high risk HPV mRNA assay detec ts fourt een high- risk HPV types (16, 18, 31, 33, 35, 39, 45, 51, 52, 56, 58, 59, 66, 68) witho ut diffe renti ation . COMME NT: Note: This speci men was revie wed by a Cytot echno logis t and/o r Patho logis t (as indic ated in this repor t) after evalu ation using the Thinp rep Imagi ng Syste m. CLINI BEAU INFOR MATIO N: Menst rual Statu s: LMP (if appli cable ): Clini beau Histo ry/Pr eviou s Pap: Type of Neopl joe (if appli cable ): Signi fican t Clini beau Findi ngs: Other Histo ry: Hormo vick (if appli cable ): PAP EDUCA ASHA L NOTE: The Pap Test is a scree thom test with an inher ent false negat laura rate. Liqui d-bas ed sampl ing may decre ase, but will not elimi felix, false negat laura resul ts. A negat laura resul t does not precl ude the prese nce and/o r devel opmen t of disea se, since the prese nce of abnor mal cells in the sampl e depen ds on the locat ion of the lesio n and sampl ing techn ique. Bandar nued regul ar scree thom is the best metho d of cance r preve ntion . If repor dee cytol ogic findi ng do not corre late with physi beau and/o r histo rical findi ngs, furth er inves tigat ion is recom roxie d, as clini lei real nted. Not Available [facility] [address], [place], [address], 05/10/2022 10:04:33 06/29/20 23 06/29/2023 IMAGE GUIDE D PAP AND HPV REGAR DLESS image guided Pap, HPV regardless of Pap result SEE RESULT S BELOW CASE REPOR T: Cytol ogy Gynec ologi beau Repor t Case: [id number] Autho rozina fontenot Provi lon: Asher Cho Colle cted: 06/29 1457 HAND SUTURE WINDER Order ing Locat ion: [place] Patho logy Recei keshia: 06/30 0214 First Scree n: Martha Abarca , [place] Speci men: Screziyad tomas Pap - Image d, Cervi x STATE MENT OF ADEQU ACY: Satis facto ry for evalu ation Trans forma tion zone compo nent prese nt FINAL DIAGN OSIS: Negat laura for Intra epith elial Lesmaritza n or Leoncio stanley (NIL) . Elect vera reyes romero d by Martha Abarca , [place] on 2022 at 2:59 PM ----- ----- ----- ----- ----- ----- ----- ----- ----- ----- ----- ----- ----- ----- ----- ----- ----- ---- HPV RESUL TS: HPV mRNA E6/E7 : No HPV mRNA Detec dee NOTE: This high risk HPV mRNA assay detec ts fourt een high- risk HPV types (16, 18, 31, 33, 35, 39, 45, 51, 52, 56, 58, 59, 66, 68) witho ut diffe renti ation . COMME NT: This speci men was revie wed by a Cytot echno logis t and/o r Patho logis t (as indic ated in this repor t) after evalu ation using the Thinp rep Imagi ng Syste m. CLINI BEAU INFOR MATIO N: Menst rual Statu s: LMP (if appli cable ): Clini beau Histo ry/Pr eviou s Pap: Type of Neopl joe (if appli cable ): Signi fican t Clini beau Findi ngs: Other Histo ry: Hormo vick (if appli cable ): PAP EDUCA ASHA L NOTE: The Pap Test is a scree thom test with an inher ent false negat laura rate. Liqui d-bas ed sampl ing may decre ase, but will not elimi felix, false negat laura resul ts. A negat laura resul t does not precl ude the prese nce and/o r devel opmen t of disea se, since the prese nce of abnor mal cells in the sampl e depen ds on the locat ion of the lesio n and sampl ing techn ique. Bandar nued regul ar scree thom is the best metho d of cance r preve ntion . If repor dee cytol ogic findi ng do not corre late with physi beau and/o r histo rical findi ngs, furth er inves tigat ion is recom roxie d, as clini lei warra nted. Not Available [facility] (Lab) [address], [place], [address], 07/03/2023 16:03:03 05/16/20 21 05/16/2021 MAMMO , scree thom, bilat eral No observ ation record ed. [facility] [address], [place], [address], 05/17/2021 19:38:07 10/16/19 23 10/14/2022 MAMMO , scree thom, bilat eral No observ ation record ed. [email or web address] [facility] [address], [place], [address], 06/29/2023 10:00:29 10/22/19 24 10/20/2023 MAMMO , scree thom, bilat eral No observ ation record ed. [email or web address] [facility] [address], [place], [address], 10/24/2023 14:16:43 10/22/19 24 10/20/2023 MAMMO , scree thom, bilat eral No observ ation record ed. [email or web address] [facility] [address], [place], [address], 10/24/2023 14:22:11 11/22/19 24 11/22/2023 MAMMO , diagn ostic , bilat eral No observ ation record ed. [facility] [address], [place], [address], 11/23/2023 11:43:57 11/22/19 24 11/22/2023 MAMMO , diagn ostic , digit al, bilat eral No observ ation record ed. [address], [place], [address], 11/22/2023 17:52:57 11/22/19 24 11/22/2023 MAMMO , diagn ostic , digit al, bilat eral No observ ation record ed. [address], [place], [address], 11/22/2023 17:53:35 11/28/19 24 11/28/2023 MAMMO , diagn ostic , digit al, unila teral No observ ation record ed. [email or web address] [facility] [address], [place], [address], 11/29/2023 16:46:45 12/10/19 24 12/10/2023 MAMMO , diagn ostic , digit al, unila teral No observ ation record ed. [email or web address] [facility] [address], [place], [address], 12/27/2023 10:31:28 12/10/19 24 12/10/2023 MAMMO , scree thom, bilat eral No observ ation [facility] ed. [email or web address] [address], [place], [address], 12/18/2023 10:35:29 03/11/2011/22/2023 mammo gram, follo w up* No observ ation record ed. [email or web address] [address], [place], [address], 03/12/2024 08:59:49 06/16/2006/16/2024 MAMMO , scree thom, digit al, bilat eral No observ ation record ed. [facility] [address], [place], [address], 06/16/2024 21:20:43 06/16/2006/16/2024 US, breas t, unila teral No observ ation record ed. [facility] [address], [place], [address], 06/16/2024 21:20:43 Result Notes None recorded. Problems Name Problem SNOMED Code Status Onset Date Resolution Date Notes Provider Name and Address Organization Details Recorded Time [facility]i [facility] medical examinat ion Completed 201204/01/2021 Routine gynecolog ical examinati on;Practi ce ID: 0001 Isabell yip [facility] 09:44:29 Screenin g for malignan t neoplasm of cervix Completed 201204/01/2021 Pap Smear;Pra ctice ID: 0001 Isabell yip [facility] 09:44:22 Adult health examinat ion Completed 201304/01/2021 Routine general medical examinati on at a health care facility; Practice ID: 0001 Isabell yip [facility] 09:44:07 Condylom a acuminat um of the anogenit al region [id number] Completed 201404/01/2021 Condyloma acuminatu m;[facility]10 Abnormal cervical Papanico laou smear [id number] Completed 201404/01/2021 Other abnormal papanicol aou smear of cervix and cervical HPV;Pract ice ID: 0001 [facility] 09:44:[address] Concept Completed 201504/01/2021 Encntr for psychometric examiner exam (general) (routine) w/o abn findings; Practice ID: 0001 [facility] 09:44:27 Screenin g for malignan t neoplasm of rectum Completed 201804/01/2021 Encounter for screening for malignant neoplasm of rectum;Pr actice ID: 0001 [facility] 09:44:[address] Concept Completed 201804/01/2021 Encntr for general adult medical exam w/o abnormal findings; Recorded Elsewhere : No Locati on: [facility] So urce: EHR Chron ic: N Practic e ID: 0001 Bill able Time: 02:00:00 PM [facility] 09:44:26 Body mass index 30+ - obesity 789866326 Completed 201704/01/2021 Body mass index (BMI) 38.0-38.9 , adult;Rec orded Elsewhere : No Locati on: [facility] So urce: EHR Chron ic: N Practic e ID: 0001 Bill able Time: 01:00:00 PM [facility] 09:44:08 Contrace ptive sheath status [id number] Completed 201804/01/2021 Encounter for initial prescript ion of other contracep tives;Rec orded Elsewhere : No Locati on: [facility] So urce: EHR Chron ic: N Practic e ID: 0001 Bill able Time: 02:00:00 PM Isabell yip [facility] 09:44:11 Infectio n screenin g Completed 201704/01/2021 Encounter for screening for oth infec/par astc diseases; Recorded Elsewhere : No Locati on: [facility] So urce: EHR Chron ic: N Practic e ID: 0001 Bill able Time: 01:00:00 PM Isabell Plasencia [facility] 09:44:15 Syphilis test finding [id number] Completed 201704/01/2021 Encntr screen for infection s w sexl mode of transmiss ;Recorded Elsewhere : No Locati on: [facility] So urce: EHR Chron ic: N Practic e ID: 0001 Bill able Time: 01:00:00 PM Isabell Plasencia [facility] 09:44:31 Morbid obesity 217217199 Completed 201404/01/2021 Obesity, Morbid;Re corded Elsewhere : No Locati on: [facility] So urce: EHR Chron ic: N Practic e ID: 0001 Bill able Time: 09:00:00 AM Isabell yip [facility] 09:44:17 Cytologi c finding [id number] Completed 201004/01/2021 Pap Abnormal LGSIL;Pra ctice ID: 0001 Isabell Plasencia [facility] 09:44:13 Pregnanc y test negative [id number] Completed 201004/01/2021 Negative Test;Prac amor ID: 0001 [facility] 09:44:19 Right lower quadrant pain [id number] Completed 201104/01/2021 Abdominal pain, right lower quadrant; Practice ID: 0001 [facility] 09:44:20 Problem Notes None recorded. Procedures Surgical History Date Name Laterality Status Provider Name and Address Organization Details Recorded Time 06/16/20 24 Date of Last Mammogram completed [facility] 06/17/2024 11:40:58 06/29/20 23 Date of Last Pap Smear completed [facility] 06/17/2024 11:39:47 08/27/19 10 procedure on hand completed [facility] 03/19/2020 13:35:55 Tonsillectomy completed [facility] 03/19/2020 13:35:15 Appendectomy completed [facility] 03/19/2020 13:36:07 procedure on elbow completed [facility] 03/19/2020 13:36:45 Imaging Results Imaging Date Name Status LastModified by Organiz ation Details LastModified Time 05/16/2021 MAMMO, screening, bilateral completed [facility] [address], [place], [address], 05/17/2021 19:38:07 10/14/2022 MAMMO, screening, bilateral completed [email or web address] [facility] [address], [place], [address], 06/29/2023 10:00:29 10/20/2023 MAMMO, screening, bilateral completed [email or web address] [place] [address] Imaging [address], [place], [address], 10/24/2023 14:16:43 10/20/2023 MAMMO, screening, bilateral completed [email or web address] [place] [address] Imaging [address], [place], [address], 10/24/2023 14:22:11 11/22/2023 MAMMO, diagnostic, bilateral completed [facility] [address], [place], [address], 11/23/2023 11:43:57 11/22/2023 MAMMO, diagnostic, digital, bilateral completed [address] [facility] [address], [place], [address], 11/22/2023 17:52:57 11/22/2023 MAMMO, diagnostic, digital, bilateral completed [address] [facility] [address], [place], [address], 11/22/2023 17:53:35 11/28/2023 MAMMO, diagnostic, digital, unilateral completed [address], [place], [address], 11/29/2023 16:46:45 12/10/2023 MAMMO, diagnostic, digital, unilateral completed [address], [place], [address], 12/27/2023 10:31:28 12/10/2023 MAMMO, screening, bilateral completed [address], [place], [address], 12/18/2023 10:35:29 11/22/2023 mammogram, follow up* completed [address] [facility] [address], [place], [address], 03/12/2024 08:59:49 06/16/2024 MAMMO, screening, digital, bilateral completed [facility] [address], [place], [address], 06/16/2024 21:20:43 06/16/2024 [facility], [facility], unilateral [facility] [address], [place], [address], 06/16/2024 21:20:43 Procedure Notes None recorded. Medical Equipment None Reported. Allergies No known drug allergies Medications Name Sig Start Date Stop Date Status Note LastModified by Organization Details LastModified Time fluoxetin e 40 mg capsule 06/29 completed Not Available Not Available Not Available amoxicill in 500 mg capsule TAKE ONE CAPSULE BY MOUTH EVERY 6 HOURS UNTIL ALL TAKEN 03/31 completed Not Available Not Available Not Available propranol ol 80 mg tablet TAKE 1 TABLET BY MOUTH TWICE DAILY active Not Available Not Available No t Available cyanocoba monroe (vit B-12) 2,500 mcg sublingua l tablet DISSOLVE 1 TABLET UNDER THE TONGUE EVERY DAY IN THE MORNING 07/04 completed Not Available Not Available Not Available azithromy ambrose 250 mg tablet 05/04 completed Not Available Not Available Not Available meloxicam 15 mg tablet TAKE 1 TABLET BY MOUTH EVERY DAY 06/29 completed Not Available Not Available Not Available Synthroid 125 mcg tablet active Not Available Not Available Not Available Synthroid 100 mcg tablet 06/29 completed Not Available Not Available Not Available sertralin e 100 mg tablet take 1 tablet (100MG) by oral route every day 04/16 completed Prescrib ed Elsewher e: No Locat ion: [facility] odify By: lesley watson DateTime : 01/10/20 12 02:30:00 PM Not Available Not Available Not Available phentermi ne 37.5 mg tablet TAKE 1 TABLET BY MOUTH EVERY DAY 06/29 completed Not Available Not Available Not Available levothyro xine 25 mcg tablet TAKE 1 AND 1/2 TABLETS BY MOUTH EVERY MORNING AT LEAST 30 MINUTES BEFORE EATING/D RINKING 04/01 completed Not Available Not Available Not Available levothyro xine 75 mcg tablet TAKE 1 TABLET BY MOUTH EVERY DAY BEFORE MEAL 04/01 completed Not Available Not Available Not Available levothyro xine 88 mcg tablet TAKE 1 TABLET BY MOUTH EVERY DAY BEFORE MEALS 05/04 completed Not Available Not Available Not Available benzonata te 100 mg capsule TAKE 1 CAPSULE BY MOUTH THREE TIMES DAILY NEEDED 05/04 completed Not Available Not Available Not Available dexametha sone 2 mg tablet TAKE 3 TABLETS BY MOUTH EVERY DAY FOR 10 DAYS 05/04 completed Not Available Not Available Not Available levothyro xine 50 mcg tablet TAKE 1 TABLET BY MOUTH EVERY DAY 04/01 completed Not Available Not Available Not Available cyanocoba monroe (vit B-12) 1,000 mcg/mL injection solution ADMINIST ER 1 ML UNDER THE SKIN EVERY WEEK DIRECTED active Not Available Not Available No t Available Aldara 5 % topical cream packet apply by topical route 3 times every week to the affected area(s) before bedtime and leave on skin for 6 to 10 hours 09/04 completed Prescrib ed Elsewher e: No Locat ion: [facility] odify By: jennifer Ma r DateTime : 04/16/20 15 09:00:00 AM Not Available Not Available Not Available Imitrex 6 mg/0.5 mL subcutane ous solution inject 0.5 millilit er by subcutan eous route once; may be repeated 1 hour after the first dose if headache pain returns or increase s in severity ; do not exceed 2 doses within 24 hours 09/04 completed Prescrib ed Elsewher e: Yes Loca tion: [facility] odify By: jennifer Montanezte r DateTime : 01/10/20 12 02:30:00 PM Not Available Not Available Not Available Low-Ogest rel (28) 0.3 mg-30 mcg tablet TAKE 1 TABLET BY ORAL ROUTE EVERY DAY 01/01 completed Prescrib ed Elsewher e: No Locat ion: [facility] odify By: genoveva tz Dayanaou nter DateTime : 09/04/19 18 01:00:00 PM Not Available Not Available Not Available albuterol sulfate HFA 90 mcg/actua tion aerosol inhaler INHALE 2 PUFFS BY MOUTH EVERY 4 HOURS NEEDED 05/04 completed Not Available Not Available Not Available sertralin e 20 mg/mL oral concentra te take 2.5 millilit er by oral route every day and mix with 4 oz. (1/2 cup) of water, sussy alesia, lemon/li me soda, lemonade or orange juice ONLY 09/04 completed Prescrib salvador Reyes e: Yes Loca tion: Carmen lackey [facility] M gurvinder By: [email or web address] Encounte r DateTime : 04/16/20 09:00:00 AM Not Available Not Available Not Available levothyro xine 03/31 completed Not Available Not Available Not Available vilazodon e 40 mg tablet TAKE 1 TABLET BY MOUTH EVERY DAY WITH A MEAL active Not Available Not Available No t Available Viibryd 03/31 completed Not Available Not Available Not Available TRUEplus Insulin 1 mL 31 gauge x 5/16 syringe USE TO INJECT B12 SUBCUTAN EOUS ONCE A WEEK X 90 DAYS active Not Available Not Available No t Available Blisovi Fe 09/15 (28) 1 mg-20 mcg (21)/75 mg (7) tablet TAKE 1 TABLET BY MOUTH EVERY DAY DIRECTED 2024 active Not Available Not Available Not Avai lable Norlyda 0.35 mg tablet TAKE 1 TABLET BY MOUTH EVERY DAY 08/04 completed Not Available Not Available Not Available Ubrelvy 100 mg tablet 06/29 completed Not Available Not Available Not Available Vitals Date Recorded Body height Body mass index (BMI) Body weight Systolic blood pressure Diastolic blood pressure Provider Name and Address Organization Details Last Updated DateTime 04/01/2021 155.58 cm 8.6 kg/m2 81056.25 g 133 mm[Hg] 84 mm[Hg] Isabell Plasencia [facility] 10:27:22 Date Recorded Body height Body mass index (BMI) Body weight Provider Name and Address Organization Details Last Updated DateTime 05/04/2022 156.21 cm 41.8 kg/m2 923084.28 g Isabell Plasencia [facility] 05/04/2022 11:25:09 Date Recorded Systolic blood pressure Diastolic blood pressure Provider Name and Address Organization Details Last Updated DateTime 05/04/2022 122 mm[Hg] 80 mm[Hg] Jasmin Musa, [facility]- [address], [place], [address], [facility] 05/04/2022 13:23:21 Date Recorded Body height Body mass index (BMI) Body weight Provider Name and Address Organization Details Last Updated DateTime 08/04/2022 156.21 cm 41.8 kg/m2 104854.28 g Elyssa Madrid [facility] 08/04/2022 12:36:42 Date Recorded Systolic blood pressure Diastolic blood pressure Provider Name and Address Organization Details Last Updated DateTime 08/04/2022 122 mm[Hg] 80 mm[Hg] Jasmin Musa, [facility]- [address], [place], [place], [address], [facility] 08/04/2022 12:43:29 Date Recorded Body height Provider Name an d Address Organization Details Last Updated DateTime 06/29/2023 156.21 cm Irinacaryn Puente [facility] 06/29/2023 09:39:36 Date Recorded Body height Body mass index (BMI) Body weight Systolic blood pressure Diastolic blood pressure Provider Name and Address Organization Details Last Updated DateTime 07/04/2024 156.21 cm 47.4 kg/m2 158822.0 5 g 122 mm[Hg] 80 mm[Hg] Amada Shaye [facility] 09:33:50 Social History Question Answer Notes LastModified by Organizat ion Details LastModified Time Tobacco Smoking Status Never Smoker Gris yip, [facility] 06/29/2023 09:37:01 Do You Have An Advance Directive? No Information n ot available 05/04/2022 What Is Your Level Of Alcohol Consumption? Occasional [email or web address] Information not available 03/26/2020 How Many Years Have You Consumed Alcohol? 20 Information not available 05/04/2022 Are You Blind Or Do You Have Difficulty Seeing? No Information n ot available 04/01/2021 What Is Your Level Of Caffeine Consumption? Moderate Information not available 04/01/2021 How Much Tobacco Do You Chew? None Information not available 05/04/2022 In The 14 Days Before Symptom Onset, Have You Had Close Contact With A Laboratory-confirm ed COVID-19 While That Case Was Ill? No Information n ot available 05/04/2022 In The 14 Days Before Symptom Onset, Have You Had Close Contact With A Person Who Is Under Investigation For COVID-19 While That Person Was Ill? No Information not available 05/04/2022 Have You Been To An Area Known To Be High Risk For COVID-19? No Information not available 05/04/2022 Are You Deaf Or Do You Have Serious Difficulty Hearing? No Information not available 04/01/2021 What Type Of Diet Are You Following? REGULAR [email or web address] Information n ot available 08/04/2022 What Is The Highest Grade Or Level Of School You Have Completed Or The Highest Degree You Have Received? 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 Yes [email or web address] Information not available 07/04/2024 Do You Use Protection During Sex? Always [email or web address] Information not available 07/04/2024 Do You Use Your Seat Belt Or Car Seat Routinely? Yes Information not available 04/01/2021 Do You Have Smoke And Carbon Monoxide Detectors In Your Home? Yes Information not available 04/01/2021 How Much Tobacco Do You Smoke? No Information not available 05/04/2022 Do You Feel Stressed (tense, Restless, Nervous, Or Anxious, Or Unable To Sleep At Night)? [id number] Information not available 04/01/2021 Do You Use Any Illicit Or Recreational Drugs? No Information not available 04/01/2021 Do You Use Sunscreen Routinely? Yes Information not available 04/01/2021 Have You Used IV Drugs? No Information not available 05/04/2022 Sex: Unknown Functional Status Question Answer Note LastModified by Organizat ion Details LastModified Time Do you have difficulty walking or climbing stairs? No [email or web address] Information not available 06/29/2023 Are you able to walk? YESWOREST Information not available 04/01/2021 Are you able to care for yourself? Yes [email or web address] Information not available 06/29/2023 Do you have difficulty dressing or bathing? No [email or web address] Information not available 06/29/2023 What is your exercise level? Moderate Information not available 05/04/2022 Mental Status None recorded. Family History Relationship Description Onset Age of this Age Resolved Age Notes LastModified by Organization Details LastModified Time Paternal Grandmother Malignant tumor of lung [email or web address] Not available 2019 13:37:16 Mother Hypertensive disorder [email or web address] Not available 2019 13:37:33 Maternal Grandmother Hypertensive disorder [email or web address] Not available 2019 13:37:33 Maternal Aunt Congestive heart failure Not available 2023 09:21:09 Paternal Grandfather Malignant tumor of lung jgumber Not available 2019 13:38:17 Maternal Grandfather Family history of coronary arterioscler osis [email or web address] Not available 2023 09:21:09 Unspecified Relation Malignant tumor of breast p great aunt Not available 04/01/2021 10:30:18 Medical History Condition Response Other Thyroid Problems Gynecological History Statement/Question Response Abnormal Pap Y Date of Last Mammogram 06/16/2024 Flow Light Date of LMP 06/19/2024 N Was last menstrual period normal Y STIs/STDs N HPV Vaccine N Duration of Flow (days) 1 12 Current Control Method BCPs Are cycles usually normal N Sexually Active? N BCPs Menses Monthly N Age of first menstrual cycle 10 Date of Last Pap Smear 06/29/2023 Sexual Problems? N Desired Control Method BCPs LMP Approximate N Obstetrics History GPAL:G 0 P 0 0 0 0 Past Encounters Encounter ID Performer Location Encounter Start Date Encounter Closed Date Diagnosis/Indication Diagnosis SNOMED-CT Code Diagnosis ICD10 Code Diagnosis Note [id number] [facility] [address] [address] 03/26/2020 09:20:18 03/26/2020 09:59:06 Gynecologic examination 48847061 Z01.419 Suggested Calcium with Vitamin D 1200-1500m g daily. Patient advised to get an annual flu shot in the fall and she could obtain at [facility] or [facility] take care clinic. Also to obtain TDap vaccinatio n if you have not had one in the last 10 years. Recommend yearly mammograms . Encouraged monthly self breast exams. Encourage safe sexual practices, to use condoms and limit partners if not already in a monogamous relationsh ip. Engage in daily exercise of low impact aerobic exercise 45-60 minutes 4-5 times weekly. Avoid tobacco and illicit drugs as well as using moderation with alcohol intake less than 1-2 8 oz beverages daily. This lifestyle behavior pattern will lead to less health conditions and longer life span. If BMI greater than 25 weight watchers or dietary consult advised. All questions have been answered. Patient appears to understand informatio n, but if you have any questions please call or respond to this email. Contracept ion care management 763038117 Z30.9 Currently on POP Micronor. Still with some heavy periods some months. We discussed trial of slynd POP. Samples given. If she decides she likes it & insurance covers it please call us & we can send Rx into pharmacy. If not can stick with current Micronor POP. Recently diagnosed hypothyroi dism can also contribute to changes in menstrual cycle as well. [id number] Jasmin Musa , [facility] [address] [address] 04/01/2021 10:06:10 04/01/2021 12:26:51 Gynecologic examination 93226826 Z01.419 Suggested Calcium with Vitamin D 1200-1500m g daily. Patient advised to get an annual flu shot in the fall and she could obtain at [facility] or [facility] care clinic. Also to obtain TDap vaccinatio n if you have not had one in the last 10 years. Recommend yearly mammograms . Encouraged monthly self breast exams. Encourage safe sexual practices, to use condoms and limit partners if not already in a monogamous relationsh ip. Engage in daily exercise of low impact aerobic exercise 45-60 minutes 4-5 times weekly. Avoid tobacco and illicit drugs as well as using moderation with alcohol intake less than 1-2 8 oz beverages daily. This lifestyle behavior pattern will lead to less health conditions and longer life span. If BMI greater than 25 weight watchers or dietary consult advised. All questions have been answered. Patient appears to understand informatio n, but if you have any questions please call or respond to this email. Pap/hpv sentMammo orderedNo other issues or concernsDe lcine std screen Contracept ion care management 117636128 Z30.9 Happy on POPRF sent [id number] Jasmin Musa , [facility] [address] [address] 05/04/2022 11:10:32 05/04/2022 14:28:46 Gynecologic examination 65089953 Z01.419 Z11.51 Suggested Calcium with Vitamin D 1200-1500m g daily. Patient advised to get an annual flu shot in the fall and she could obtain at [facility] or [facility] care clinic. Also to obtain TDap vaccinatio n if you have not had one in the last 10 years. Recommend yearly mammograms . Encouraged monthly self breast exams. Encourage safe sexual practices, to use condoms and limit partners if not already in a monogamous relationsh ip. Engage in daily exercise of low impact aerobic exercise 45-60 minutes 4-5 times weekly. Avoid tobacco and illicit drugs as well as using moderation with alcohol intake less than 1-2 8 oz beverages daily. This lifestyle behavior pattern will lead to less health conditions and longer life span. If BMI greater than 25 weight watchers or dietary consult advised. All questions have been answered. Patient appears to understand informatio n, but if you have any questions please call or respond to this email. Pap/hpv sentSTD Screen declinedGe netic Screen discussedC olon Screen naDexa Screen naRoutine Labs UTD PCPMammo ordered Contracept ion care management 433137694 Z30.9 Switch to L o loestrin FE to help a bit with Hot flashes she has started havingThyr oid can be a contributi ng factor but is well managed by Dr. Casi Miller's office. Beam Dyer Recessed Vat:Yarelis scussed all control options in great detail. Pt would like to start ocp. She is aware of the risks and benefits. She does not have any medical condition that is contraindi cated with the use of estrogen containing control. Pt will start her pills on the first sunday following the start of her period. She is aware it is not effective for control the first month. She is also aware of the importance of taking at the same time every day. Encouraged use of condoms as the pill does not protect against STD's. Will return in 3 months for med check. Consent was read and signed. Pt verbalized understand ing. RTO x 3mos med check [id number] Jasmin Musa [facility] [address],[place] [address] 08/04/2022 12:21:16 08/04/2022 14:20:34 Contraception care management 117174261 Z30.9 Patient is here today for a medicaton check of control. She voices goals of therapy have been met with use of this therapy. She denies neg side effects. She is eating, drinking, sleeping well; moods are stable & periods are well regulated. Wishes to continue this method of BC. Appropriat e to continue this medication .WWE due 06/2023 Time spent in visit is a total of 15 mins with at least 50% of visit consisting of counseling and review of plan of care. [id number] Jasmin Musa , [facility] [address],[place] [address] 06/29/2023 09:36:35 06/29/2023 10:01:22 Gynecologic examination 00596131 Z01.419 Z11.51 Suggested Calcium with Vitamin D 1200-1500m g daily. Patient advised to get an annual flu shot in the fall and she could obtain at [facility] or [facility] take care clinic. Also to obtain TDap vaccinatio n if you have not had one in the last 10 years. Recommend yearly mammograms . Encouraged monthly self breast exams. Encourage safe sexual practices, to use condoms and limit partners if not already in a monogamous relationsh ip. Engage in daily exercise of low impact aerobic exercise 45-60 minutes 4-5 times weekly. Avoid tobacco and illicit drugs as well as using moderation with alcohol intake less than 1-2 8 oz beverages daily. This lifestyle behavior pattern will lead to less health conditions and longer life span. If BMI greater than 25 weight watchers or dietary consult advised. All questions have been answered. Patient appears to understand informatio n, but if you have any questions please call or respond to this email. Pap/hpv sentSTD Screen declinedGe netic Screen discussedC olon Screen naDexa Screen naRoutine Labs UTD PCPMammo ordered Contracept ion care management 089941811 Z30.9 Happy with OCPRF x 1yr Screening mammography 24 543833 Z12.31 [id number] BRENDA BLOUNT, [facility] [address] [address] 07/04/2024 09:20:22 07/04/2024 10:20:24 Gynecologic examination 47017616 Z01.419 Annual gynecologi beau exam performed. Patient will come back in a year unless there are new symptoms. Suggest Calcium with Vitamin D if not eating in diet. Patient advised to get annual flu shot. Recommend yearly physicals and perform monthly breast exams. Genetic testing is available for patients with family history of cancer. Engage in safe sexual practices, use condoms. Encouraged to have daily exercise. Avoid tobacco and illicit drugs, moderation of alcohol. If BMI greater than 25 dietary consult advised. If you have any questions please call or email. mammogram- 06/16/24 dx mammogram with u/s 6 month f/u BIRADS 3 ( probably benign right breast mass per pt), return to regular bilateral screening in 2024 colon cancer screening - GI referral to [facility] DEXA scan- n/a Pap smear- UTD (2022 - WNL), will repeat in 2025 per ASCCP guidelines laboratory evaluation - PCP STI testing - declined Contracept ion care management 308870257 Z30.9 Happy with OCP.Refill s x 1 year Screening mammography 24 687852 Z12.31 Screening colonoscopy 44 8368541 Z12.11 GI referral to [facility] Health Concerns Section Related Observation LastModified by Organization Detai ls LastModified Time None Recorded Concern Status LastModified by Organization Details LastModified Time None Recorded Advance Directives Directive N: Payers Encounter Date Sequence Insurance Name Policy Number Policy Regalado Covered Member ID Regalado Member ID Guarantor Name 04/01/2021 1 [employer]) [id number] Brenda Saldivar [id number] Brenda Saldivar 05/04/2022 1 [employer]) [id number] Brenda Saldivar [id number] Brenda Odonnell Spitze 08/04/2022 1 [employer] (PPO) [id number] Brenda Odonnell Spitze [id number] Brenda Odonnell Spitze 06/29/2023 1 [employer] (PPO) [id number] Brenda Odonnell Spitze [id number] Brenda Odonnell Spitze 07/04/2024 1 [employer] (PPO) [id number] Brenda Odonnell Spitze [id number] Brenda Saldivar Notes Date Note Type Note Provider Name and Address Organization Details Recorded Time 04/01/2021 text/html Annual GYNReport ed bypatient.History:no gynecologic complaints Menstrual cycle:Normal menses Urinary symptoms:No hematuria; No incontinence Vulva:No genital lesion Vagina:Normal vaginal discharge Breast:No breast pain; No breast lump; No nipple discharge Current Contraception:Satisf ied with current contraception; Monogamous relationship; Oral contraceptives Sexual complaints:No sexual complaints; No pain during intercourse; Normal libido Menopausal Symptoms:No menopausal symptoms; Normal vaginal lubrication Psychological symptoms:No depression; No anxiety; No PMDD Preventive measures:Encourage self breast examination; Encourage regular exercise; Encourage no tobacco use; Encourage regular mammograms starting age 40; History of abnormal pap smear/cervical dysplasia; Needs to schedule mammogram [facility] [address], [place], [address], [facility] 04/01/2021 10:48:24 05/04/2022 text/html Annual GYNReport ed bypatient.Menstrual cycle:Normal menses Urinary symptoms:No hematuria; No incontinence Vulva:No genital lesion Vagina:Normal vaginal discharge Breast:No breast pain; No breast lump; No nipple discharge Current Contraception:Oral contraceptives Sexual complaints:No sexual complaints; No pain during intercourse; Normal libido Menopausal Symptoms:No menopausal symptoms; Normal vaginal lubrication Psychological symptoms:No depression; No anxiety; No PMDD Preventive measures:Encourage self breast examination; Encourage regular exercise; Encourage no tobacco use; Encourage regular mammograms starting age 40; Followed with yearly pap smears; Needs to schedule mamm[place], [address], [facility] 05/04/2022 13:24:29 08/04/2022 text/html Here today for medication check of loestrin. Jasmin Msua [facility] [address], [place], [address], [facility] 08/04/2022 12:53:44 06/29/2023 text/html Annual GYNReport ed bypatient.History:no gynecologic complaints Menstrual cycle:Normal menses Urinary symptoms:No hematuria; No incontinence Vulva:No genital lesion Vagina:Normal vaginal discharge Breast:No breast pain; No breast lump; No nipple discharge Current Contraception:Satisf ied with current contraception; Oral contraceptives Sexual complaints:No sexual complaints; No pain during intercourse; Normal libido Menopausal Symptoms:No menopausal symptoms; Normal vaginal lubrication Psychological symptoms:No depression; No anxiety; No PMDD Preventive measures:Encourage self breast examination; Encourage regular exercise; Encourage no tobacco use; Encourage regular mammograms starting age 40; History of abnormal pap smear/cervical dysplasia Jasmin Musa [facility] [address], [place], [address], [facility] 06/29/2023 10:01:11 07/04/2024 text/html Annual GYNReport ed bypatient.History:no gynecologic complaints Menstrual cycle:Normal menses Urinary symptoms:No hematuria; No incontinence Vulva:No genital lesion Vagina:Normal vaginal discharge Breast:No breast pain; No breast lump; No nipple discharge Current Contraception:Satisf ied with current contraception; Oral contraceptives Sexual complaints:No sexual complaints; No pain during intercourse; Normal libido Menopausal Symptoms:No menopausal symptoms; Normal vaginal lubrication Psychological symptoms:No depression; No anxiety; No PMDD Preventive measures:Encourage self breast examination; Encourage regular exercise; Encourage no tobacco use; Encourage regular mammograms starting age 40; Needs to schedule mammogram; Needs to schedule colonoscopy Patient presents for annual well woman exam. Patient denies concerns today. BRENDA BLOUNT NP [address], [place], [address], [facility] 07/04/2024 10:15:23 OBGyn Episode No OBEpisode recorded.
--- OUTSIDE RECORDS SUMMARY | 2024-11-14 00:47 | XMS_ITS | Clinical Summary ---
Author Organization [facility] Address [address] [place] [address] Care Team Providers Care Legal Administrator Name Role Phone Unavailable Primary Care Provider Unavailabl e Immunizations Immunization Administration Dates Next Due (PFIZER)(12 YR UP) COVID-19 VACCINE - EMERGENCY USE AUTHORIZATION, MRNA, [id number](PF) 30 MCG/0.3 ML IM SUSP 09/29/2020,09/08/2020 Social History Tobacco Use Types Packs/Day Years Used Date Smoking Tobacco: Never Assessed Comments Unknown Sex and Gender Information Value Date Recorded Sex Assigned at Not on file Legal Sex Female 3:53 PM CDT Gender Identity Not on file Sexual Orientation Not on file Plan of Treatment Health Maintenance Due Date Last Done Comments DTAP/TDAP/TD VACCINES (1 - Tdap) 1997 HEPATITIS B VACCINES (1 of 3 - 19+ 3-dose series) 1997 BREAST CANCER SCREENING 2018 COLORECTAL SCREENING 2023 Colorectal Cancer Screening 2023 FIT-DNA Q 3 years 2023 FIT/FOBT Q 1 year 2023 Flex Sig/CT Colonography Q 5 years 2023 INFLUENZA VACCINE (#1) 2024 06/06/2019 COVID-19 Vaccine (3 - 2023-2 5 season) 2024 09/29/2020, 09/08/2020 PAP SMEAR 05/04/2025 05/04/2022 HPV VACCINES Aged Out No longer eligi ble based on patient's age to complete this topic Insurance [facility] CHOICE [id number]
--- OUTSIDE RECORDS SUMMARY | 2024-11-14 00:47 | XMS_ITS | Data Portability ---
Author Organization [place] [facility] [employer], Main Office Address [address] [place] [address] Care Team Providers Care [employer] Finish [employer] Operator Name Role Phone ASHELY MUJICA Primary Care Provider [phone] Assessment No assessment recorded. Plan of Treatment Reminders Order Date Submit Date Provider Last Modified By Organization Details Last Modified Time Details Appointments None recorded. Lab vitamin B12 + folate, serum or blood 2022 023 AMY Not available 3 15:06:35 lipid panel, serum 2022 023 AMY Not available 3 15:06:33 T3, free, serum or plasma 2022 023 AMY Not available 3 15:06:36 TSH + free T4, serum 2022 023 AMY Not available 3 14:49:52 CMP, serum or plasma 2022 023 AMY Not available 3 15:06:34 vitamin B12 + folate, serum or blood 2022 023 AMY [facility], [address], [place], [address], 3 17:43:10 T3, free, serum or plasma 2022 023 AMY [facility], [address], [place], [address], 3 17:43:12 TSH + free T4, serum 2022 023 AMY [facility], [address], [place], [address], 3 17:43:11 CMP, serum or plasma 2022 023 AMY [facility], [address], [place], [address], 3 17:43:11 Referral None recorded. Procedures None recorded. Surgeries None recorded. Imaging None recorded. Medication Orders Synthroid 125 mcg tablet 2022 023 AM[facility], [address] , [address], [place], [address], 3 17:42:35 Patient TargetsNo targets recorded. Patient InstructionsNo instructions recorded. Reason for Referral None Reported. Results Created Date Observation Date Name Description Value Unit Range Abnormal Flag Note LastModifiedBy Organization Detail LastModifiedTime 12/18/19 22 12/22/2021 ADVAN DESEAN LIPID PANEL , CARDI O IQ(R) cholesterol, total 165 mg/dL <200 Not Available [facility] [address] [address] [place], [address], 12/22/2021 09:18:12 12/18/19 22 12/22/2021 ADVAN DESEAN LIPID PANEL , CARDI O IQ(R) HDL cholesterol 55 mg/dL >49 Not Available [facility] [address] [place], [address], 12/22/2021 09:18:12 12/18/19 22 12/22/2021 ADVAN DESEAN LIPID PANEL , CARDI O IQ(R) triglyceride s 102 mg/dL <150 Not Available [facility] [address] [address] [place], [address], 12/22/2021 09:18:12 12/18/19 22 12/22/2021 ADVAN DESEAN LIPID PANEL , CARDI O IQ(R) LDL-choleste rol 90 mg/dL _(beau c) <100 Chris able range <100 mg/dL for prima ry preve ntion ; <70 mg/dL for patie nts with CHD or diabe tic patie nts with >= 2 CHD risk facto rs. LDL-C is now calcu lated using the [facility] nilam calcu latio n, which is a valid ated novel metho d provi ding jin r accur acy than the Fried eliot equat ion in the estim ation of LDL-C . Jessenia birmingham SS et al. YOGESH. 2013; 310(1 9): 2060- 2067 (http ://ed [facility] onHeirloom Computing. com/f aq/FA Q164) LDL-C is now calcu lated using the [facility] calcu latio n, which is a valid ated novel metho d provi ding jin r accur acy than the [employer] eliot equat ion in the estim ation of LDL-C . Jessenia SOUZA et al. YOGESH. 2013; 310(1 9): 2060- 2067 (http ://ed [facility] on.[employer]. com/f aq/FA Q164) Not Available [facility] [address] [place], [address], 12/22/2021 09:18:12 12/18/19 22 12/22/2021 ADVAN DESEAN LIPID PANEL , CARDI O IQ(R) chol/HDLC ratio 3.0 calc <3.6 Not Available [facility] [address] [place], [address], 12/22/2021 09:18:12 12/18/19 22 12/22/2021 ADVAN DESEAN LIPID PANEL , CARDI O IQ(R) non HDL cholesterol 110 mg/dL _(beau c) <130 For patie nts with diabe shawn plus 1 major ASCVD risk facto r, treat ing to a non-H DL-C goal of <100 mg/dL (LDL- C of <70 mg/dL ) is consi dered a thera peuti c optio n. For patie nts with diabe shawn plus 1 major ASCVD risk facto r, treat ing to a non-H DL-C goal of <100 mg/dL (LDL- C of <70 mg/dL ) is ayesha birmingham. Not Available [address] [place], [address], 12/22/2021 09:18:12 12/18/1912/22/2021 ADVAN DESEAN LIPID PANEL , CARDI O IQ(R) LDL particle number 1062 nmol/ L <1138 Relat lb Risk: Optim al <1138 ; Moder ate 1138- 1409; High >1409 . Refer ence Range : <1138 nmol/ L. Not Available [address], [address], 12/22/2021 09:18:12 12/18/1912/22/2021 ADVAN DESEAN LIPID PANEL , CARDI O IQ(R) LDL small 147 nmol/ L <142 high Relat lb Risk: Optim al <142; Moder ate 142-2 19; High >219. Refer ence Range : <142 nmol/ L. Not Available [address], [address], 12/22/2021 09:18:12 12/18/1912/22/2021 ADVAN DESEAN LIPID PANEL , CARDI O IQ(R) LDL medium 182 nmol/ L <215 Relat lb Risk: Optim al <215; Moder ate 215-3 01; High >301. Refer ence Range : <215 nmol/ L. Not Available [address] [address] [place], [address], 12/22/2021 09:18:12 12/18/1912/22/2021 ADVAN DESEAN LIPID PANEL , CARDI O IQ(R) HDL large 5968 nmol/ L >6729 low Relat lb Risk: Optim al >6729 ; Moder ate 6729- 5353; High <5353 . Refer ence Range : >6729 nmol/ L. Not Available [address] [place], [address], 12/22/2021 09:18:12 12/18/19 22 12/22/2021 ADVAN DESEAN LIPID PANEL , CARDI O IQ(R) LDL pattern A patte rn A Relat lb Risk: Optim al Patte rn A; High Patte rn B. Refer ence Range : Patte rn A. Not Available [facility] [address] [address], [place], [address], 12/22/2021 09:18:12 12/18/19 22 12/22/2021 ADVAN DESEAN LIPID PANEL , CARDI O IQ(R) LDL peak size 225.5 angst rom >222.9 Relat lb Risk: Optim al >222. 9; Moder ate 222.9 -217. 4; High <217. 4. Refer ence Range : >222. 9 Angst rom. Adult cardi ovasc ular event risk categ ory cut point s (opti mal, moder ate, high) are based on an adult [place] refer ence popul ation plus two large cohor t study popul ation s. Assoc iatio n betwe en lipop rotei n subfr actio ns and cardi ovasc ular event s is based on Jim flowers et al. ATVB. 2009; 29:19 75. For addit ional infor adrián castaneda e refer to http: //[facility] jacob birmingham.Adam stDia gnost ics.c om/fa q/FAQ 134 (This link is being provi ded for infor matmaritza nal/e ducat ional purpo ses only. ) This test is perfo rmed by an [employer] it[employer] robert terrazas. This test was devel oped and its perfo rmanc e yandel cteri stics deter mined by [facility] It has not been clear ed or appro keshia by the [place]. FDA. The [facility] is regul ated under Clini beau Labor atory Impro vemen t Amend ments (CLIA ) as quali fied to perfo rm high- compl exity testi ng. This test is used for clini beau purpo ses. It shoul d not be regar ded as inves tigat ional or for resea [facility]. Not Available [employer] [address], [address], 12/22/2021 09:18:12 12/18/19 22 12/22/2021 ADVAN DESEAN LIPID PANEL , CARDI O IQ(R) apolipoprote in B 84 mg/dL <90 Risk: Optim al <90 mg/dL ; Moder ate 90-11 9 mg/dL ; High >= 120 mg/dL ; Cardi ovasc ular event risk categ ory cut point s (opti mal, moder ate, high) are based on [facility] Assoc iatio n recom diana barrios TA et al. J of Clin Lipid . 2015; 9: 129-1 69 and Josefa TOSCANO et al. Endoc r Pract . 2017; 23(Aragon ppl 2):1- 87. Not Available [facility] [address], [address], 12/22/2021 09:18:12 12/18/19 22 12/22/2021 ADVAN DESEAN LIPID PANEL , CARDI O IQ(R) lipoprotein (A) 44 nmol/ L <75 Risk: Optim al <75 nmol/ L; Moder ate 75-12 5 nmol/ L; High >125 nmol/ L. Cardi ovasc ular event risk categ ory cut point s (opti mal, moder ate, high) are based on Emmanuelle Hinkle [facility] 2017; 69:69 2-711 . Not Available [employer] [address], [address], 12/22/2021 09:18:12 12/18/1912/22/2021 TSH+F REE T4 TSH 3.53 mIU/L normal Refer ence Range > or = 20 Years 0.40- 4.50 Pregn mali Range s First trime ster 0.26- 2.66 Secon d trime ster 0.55- 2.73 Third trime ster 0.43- 2.91 Not Available [employer] [address] [place], [address], 12/22/2021 09:18:12 12/18/19 22 12/22/2021 TSH+F REE T4 T4, free 1.5 NG/dL 0.8-1. 8 normal Not Available [address], [address], 12/22/2021 09:18:12 12/18/1912/22/2021 T3, FREE T3, free 2.9 pg/mL 2.3-4. 2 normal Not Available [address], [address], 12/22/2021 09:18:11 12/18/19 22 12/22/2021 VITAM IN B12/F OLATE , SERUM PANEL vitamin B12 648 pg/mL 200-11 00 normal Not Available [address], [address], 12/22/2021 09:18:10 12/18/19 22 12/22/2021 VITAM IN B12/F OLATE , SERUM PANEL folate, serum >24.0 NG/mL normal Refer ence Range Low: <3.4 Borde rline : 3.4-5 .4 Keisha l: >5.4 Not Available [address], [address], 12/22/2021 09:18:10 12/18/1912/22/2021 THYRO ID PEROX IDASE ANTIB ODIES thyroid peroxidase antibodies 789 IU/mL <9 high Not Available [address], [address], 12/22/2021 09:18:09 12/18/19 22 12/22/2021 COMPR EHENS LB METAB OLIC PANEL glucose 92 mg/dL 65-99 normal Fasti ng refer ence inter brenton Not Available [address], [address], 12/22/2021 09:18:09 12/18/19 22 12/22/2021 COMPR EHENS LB METAB OLIC PANEL urea nitrogen (BUN) 9 mg/dL 7-25 normal Not Available [address], [address], 12/22/2021 09:18:09 12/18/19 22 12/22/2021 COMPR EHENS LB METAB OLIC PANEL creatinine 0.67 mg/dL 0.50-1 .10 normal Not Available [address], [address], 12/22/2021 09:18:09 12/18/19 22 12/22/2021 COMPR EHENS LB METAB OLIC PANEL eGFR non-afr. costa rican 108 mL/mi n/1.7 3m2 > or = 60 normal Not Available [address], [address], 12/22/2021 09:18:09 12/18/19 22 12/22/2021 COMPR EHENS LB METAB OLIC PANEL eGFR 125 mL/mi n/1.7 3m2 > or = 60 normal Not Available [address], [address], 12/22/2021 09:18:09 12/18/19 22 12/22/2021 COMPR EHENS LB METAB OLIC PANEL BUN/creatini ne ratio not applic able (calc ) 6-22 Not Available [address], [address], 12/22/2021 09:18:09 12/18/19 22 12/22/2021 COMPR EHENS LB METAB OLIC PANEL sodium 140 mmol/ L 135-14 6 normal Not Available [address], [address], 12/22/2021 09:18:09 12/18/19 22 12/22/2021 COMPR EHENS LB METAB OLIC PANEL potassium 4.3 mmol/ L 3.5-5. 3 normal Not Available [address], [address], 12/22/2021 09:18:09 12/18/19 22 12/22/2021 COMPR EHENS LB METAB OLIC PANEL chloride 104 mmol/ L 98-110 normal Not Available [address], [address], 12/22/2021 09:18:09 12/18/19 22 12/22/2021 COMPR EHENS LB METAB OLIC PANEL carbon dioxide 33 mmol/ L 20-32 high Not Available [address], [address], 12/22/2021 09:18:09 12/18/19 22 12/22/2021 COMPR EHENS LB METAB OLIC PANEL calcium 9.3 mg/dL 8.6-10 .2 normal Not Available [address], [address], 12/22/2021 09:18:09 12/18/19 22 12/22/2021 COMPR EHENS LB METAB OLIC PANEL protein, total 6.7 g/dL 6.1-8. 1 normal Not Available [address], [address], 12/22/2021 09:18:09 12/18/19 22 12/22/2021 COMPR EHENS LB METAB OLIC PANEL albumin 4.0 g/dL 3.6-5. 1 normal Not Available [address], [address], 12/22/2021 09:18:09 12/18/19 22 12/22/2021 COMPR EHENS LB METAB OLIC PANEL globulin 2.7 g/dL_ (calc ) 1.9-3. 7 normal Not Available [address] [place], [address], 12/22/2021 09:18:09 12/18/19 22 12/22/2021 COMPR EHENS LB METAB OLIC PANEL albumin/glob ulin ratio 1.5 (calc ) 1.0-2. 5 normal Not Available [address], [address], 12/22/2021 09:18:09 12/18/19 22 12/22/2021 COMPR EHENS LB METAB OLIC PANEL bilirubin, total 0.5 mg/dL 0.2-1. 2 normal Not Available [address], [address], 12/22/2021 09:18:09 12/18/19 22 12/22/2021 COMPR EHENS LB METAB OLIC PANEL alkaline phosphatase 78 U/L 31-125 normal Not Available [address], [address], 12/22/2021 09:18:09 12/18/19 22 12/22/2021 COMPR EHENS LB METAB OLIC PANEL AST 15 U/L 10-30 normal Not Available [address], [address], 12/22/2021 09:18:09 12/18/19 22 12/22/2021 COMPR EHENS LB METAB OLIC PANEL ALT 14 U/L 6-29 normal Not Available [address], [address], 12/22/2021 09:18:09 06/24/20 22 06/27/2022 T3, FREE T3, free 2.6 pg/mL 2.3-4. 2 normal Not Available [address], [address], 06/27/2022 14:58:59 06/24/20 22 06/27/2022 VITAM IN B12/F OLATE , SERUM PANEL vitamin B12 408 pg/mL 200-11 00 normal Not Available [address], [address], 06/27/2022 14:58:58 06/24/20 22 06/27/2022 VITAM IN B12/F OLATE , SERUM PANEL folate, serum >24.0 NG/mL normal Refer ence Range Low: <3.4 Borde rline : 3.4-5 .4 Keisha l: >5.4 Not Available [address], [address], 06/27/2022 14:58:58 06/24/20 22 06/27/2022 TSH TSH 4.58 mIU/L high Refer ence Range > or = 20 Years 0.40- 4.50 Pregn mali Range s First trime ster 0.26- 2.66 Secon d trime ster 0.55- 2.73 Third trime ster 0.43- 2.91 Not Available [address], [address], 06/27/2022 14:58:58 06/24/20 22 06/27/2022 T4, FREE T4, free 1.3 NG/dL 0.8-1. 8 normal Not Available [address], [address], 06/27/2022 14:58:57 06/24/20 22 06/27/2022 THYRO ID PEROX IDASE ANTIB ODIES thyroid peroxidase antibodies 304 IU/mL <9 high Not Available [address], [address], 06/27/2022 14:58:56 06/24/20 22 06/27/2022 COMPR EHENS LB METAB OLIC PANEL glucose 87 mg/dL 65-99 normal Fasti ng refer ence inter brenton Not Available [address], [address], 06/27/2022 14:58:55 06/24/20 22 06/27/2022 COMPR EHENS LB METAB OLIC PANEL urea nitrogen (BUN) 9 mg/dL 7-25 normal Not Available [address], [address], 06/27/2022 14:58:55 06/24/20 22 06/27/2022 COMPR EHENS LB METAB OLIC PANEL creatinine 0.66 mg/dL 0.50-0 .99 normal Not Available [address], [address], 06/27/2022 14:58:55 06/24/20 22 06/27/2022 COMPR EHENS LB METAB OLIC PANEL eGFR 112 mL/mi n/1.7 3m2 > or = 60 normal The eGFR is based on the CKD-E PI 2020 equat ion. To calcu late the new eGFR from a previ ous Creat inine or Cysta tin C resul t, go to https ://amari obrien.juventino oviedo.itz mccarthy/mindy hernandez s/ kdoqi /gfr% 5Fcal culat or Not Available [address], [address], 06/27/2022 14:58:55 06/24/20 22 06/27/2022 COMPR EHENS LB METAB OLIC PANEL BUN/creatini ne ratio not applic able (calc ) 6-22 Not Available [address], [address], 06/27/2022 14:58:55 06/24/20 22 06/27/2022 COMPR EHENS LB METAB OLIC PANEL sodium 140 mmol/ L 135-14 6 normal Not Available [address], [address], 06/27/2022 14:58:55 06/24/20 22 06/27/2022 COMPR EHENS LB METAB OLIC PANEL potassium 4.6 mmol/ L 3.5-5. 3 normal Not Available [address], [address], 06/27/2022 14:58:55 06/24/20 22 06/27/2022 COMPR EHENS LB METAB OLIC PANEL chloride 105 mmol/ L 98-110 normal Not Available [address], [address], 06/27/2022 14:58:55 06/24/20 22 06/27/2022 COMPR EHENS LB METAB OLIC PANEL carbon dioxide 28 mmol/ L 20-32 normal Not Available [address], [address], 06/27/2022 14:58:55 06/24/20 22 06/27/2022 COMPR EHENS LB METAB OLIC PANEL calcium 9.2 mg/dL 8.6-10 .2 normal Not Available [address], [address], 06/27/2022 14:58:55 06/24/20 22 06/27/2022 COMPR EHENS LB METAB OLIC PANEL protein, total 6.4 g/dL 6.1-8. 1 normal Not Available [address], [address], 06/27/2022 14:58:55 06/24/20 22 06/27/2022 COMPR EHENS LB METAB OLIC PANEL albumin 3.8 g/dL 3.6-5. 1 normal Not Available [address], [address], 06/27/2022 14:58:55 06/24/20 22 06/27/2022 COMPR EHENS LB METAB OLIC PANEL globulin 2.6 g/dL_ (calc ) 1.9-3. 7 normal Not Available [address], [address], 06/27/2022 14:58:55 06/24/20 22 06/27/2022 COMPR EHENS LB METAB OLIC PANEL albumin/glob ulin ratio 1.5 (calc ) 1.0-2. 5 normal Not Available [address], [address], 06/27/2022 14:58:55 06/24/20 22 06/27/2022 COMPR EHENS LB METAB OLIC PANEL bilirubin, total 0.4 mg/dL 0.2-1. 2 normal Not Available [address], [address], 06/27/2022 14:58:55 06/24/20 22 06/27/2022 COMPR EHENS LB METAB OLIC PANEL alkaline phosphatase 68 U/L 31-125 normal Not Available [address], [address], 06/27/2022 14:58:55 06/24/20 22 06/27/2022 COMPR EHENS LB METAB OLIC PANEL AST 12 U/L 10-30 normal Not Available [address], [address], 06/27/2022 14:58:55 06/24/20 22 06/27/2022 COMPR EHENS LB METAB OLIC PANEL ALT 10 U/L 6-29 normal Not Available [address], [address], 06/27/2022 14:58:55 12/24/19 23 12/25/2022 COMPR EHENS LB METAB OLIC PANEL glucose 83 mg/dL 65-99 normal Fasti ng refer ence inter brenton Not Available [address], [address], 12/25/2022 17:20:12 12/24/19 23 12/25/2022 COMPR EHENS LB METAB OLIC PANEL urea nitrogen (BUN) 7 mg/dL 7-25 normal Not Available [address], [address], 12/25/2022 17:20:12 12/24/19 23 12/25/2022 COMPR EHENS LB METAB OLIC PANEL creatinine 0.74 mg/dL 0.50-0 .99 normal Not Available [address], [address], 12/25/2022 17:20:12 12/24/19 23 12/25/2022 COMPR EHENS LB METAB OLIC PANEL eGFR 102 mL/mi n/1.7 3m2 > or = 60 normal The eGFR is based on the CKD-E PI 2020 equat ion. To calcu late the new eGFR from a previ ous Creat inine or Cysta tin C resul t, go to https ://amari oviedo.itz mccarthy/mindy hernandez s/ kdoqi /gfr% 5Fcal culat or Not Available [address], [address], 12/25/2022 17:20:12 12/24/19 23 12/25/2022 COMPR EHENS LB METAB OLIC PANEL BUN/creatini ne ratio NOT APPLIC ABLE (calc ) 6-22 Not Available [address], [address], 12/25/2022 17:20:12 12/24/19 23 12/25/2022 COMPR EHENS LB METAB OLIC PANEL sodium 135 mmol/ L 135-14 6 normal Not Available [address], [address], 12/25/2022 17:20:12 12/24/19 23 12/25/2022 COMPR EHENS LB METAB OLIC PANEL potassium 4.5 mmol/ L 3.5-5. 3 normal Not Available [address], [address], 12/25/2022 17:20:12 12/24/19 23 12/25/2022 COMPR EHENS LB METAB OLIC PANEL chloride 102 mmol/ L 98-110 normal Not Available [address], [address], 12/25/2022 17:20:12 12/24/19 23 12/25/2022 COMPR EHENS LB METAB OLIC PANEL carbon dioxide 27 mmol/ L 20-32 normal Not Available [address], [address], 12/25/2022 17:20:12 12/24/19 23 12/25/2022 COMPR EHENS LB METAB OLIC PANEL calcium 9.1 mg/dL 8.6-10 .2 normal Not Available [address], [address], 12/25/2022 17:20:12 12/24/19 23 12/25/2022 COMPR EHENS LB METAB OLIC PANEL protein, total 6.5 g/dL 6.1-8. 1 normal Not Available [address], [address], 12/25/2022 17:20:12 12/24/19 23 12/25/2022 COMPR EHENS LB METAB OLIC PANEL albumin 3.6 g/dL 3.6-5. 1 normal Not Available [address], [address], 12/25/2022 17:20:12 12/24/19 23 12/25/2022 COMPR EHENS LB METAB OLIC PANEL globulin 2.9 g/dL_ (calc ) 1.9-3. 7 normal Not Available [address], [address], 12/25/2022 17:20:12 12/24/19 23 12/25/2022 COMPR EHENS LB METAB OLIC PANEL albumin/glob ulin ratio 1.2 (calc ) 1.0-2. 5 normal Not Available [address], [address], 12/25/2022 17:20:12 12/24/19 23 12/25/2022 COMPR EHENS LB METAB OLIC PANEL bilirubin, total 0.4 mg/dL 0.2-1. 2 normal Not Available [address], [address], 12/25/2022 17:20:12 12/24/19 23 12/25/2022 COMPR EHENS LB METAB OLIC PANEL alkaline phosphatase 58 U/L 31-125 normal Not Available [facility] [address], [address], 12/25/2022 17:20:12 12/24/19 23 12/25/2022 COMPR EHENS LB METAB OLIC PANEL AST 14 U/L 10-30 normal Not Available [address], [address], 12/25/2022 17:20:12 12/24/19 23 12/25/2022 COMPR EHENS LB METAB OLIC PANEL ALT 14 U/L 6-29 normal Not Available [address], [address], 12/25/2022 17:20:12 12/24/19 23 12/25/2022 THYRO ID PEROX IDASE ANTIB ODIES thyroid peroxidase antibodies 346 IU/mL <9 high Not Available [address], [address], 12/25/2022 17:20:13 12/24/19 23 12/25/2022 T4, FREE T4, free 1.4 NG/dL 0.8-1. 8 normal Not Available [address], [address], 12/25/2022 17:20:14 12/24/19 23 12/25/2022 VITAM IN B12/F OLATE , SERUM PANEL vitamin B12 338 pg/mL 200-11 00 normal Pleas e Note: Altho ugh the refer ence range for vitam in B12 is 200-1 100 pg/mL , it has been repor dee that betwe en 5 and 10% of patie nts with value s betwe en 200 and 400 pg/mL may exper ience neuro psych iatri c and hemat ologi c abnor malit ies due to occul t B12 defic iency ; less than 1% of patie nts with value s above 400 pg/mL will have sympt oms. Not Available [facility] [address], [address], 12/25/2022 17:20:14 12/24/19 23 12/25/2022 VITAM IN B12/F OLATE , SERUM PANEL folate, serum 21.9 NG/mL normal Refer ence Range Low: <3.4 Borde rline : 3.4-5 .4 Keisha l: >5.4 Not Available [facility] [address] [place], [address], 12/25/2022 17:20:14 12/24/19 23 12/25/2022 T3, FREE T3, free 2.8 pg/mL 2.3-4. 2 normal Not Available [facility] [address], [address], 12/25/2022 17:20:15 12/24/19 23 12/25/2022 TSH TSH 2.47 mIU/L normal Refer ence Range > or = 20 Years 0.40- 4.50 Pregn mali Range s First trime ster 0.26- 2.66 Secon d trime ster 0.55- 2.73 Third trime ster 0.43- 2.91 Not Available [facility] [address] [place], [address], 12/25/2022 17:20:15 02/18/20 23 02/19/2023 COMPR EHENS LB METAB OLIC PANEL glucose 95 mg/dL 65-99 normal Fasti ng refer ence inter brenton Not Available [address], [address], 02/19/2023 16:38:44 02/18/20 23 02/19/2023 COMPR EHENS LB METAB OLIC PANEL urea nitrogen (BUN) 10 mg/dL 7-25 normal Not Available [address], [address], 02/19/2023 16:38:44 02/18/20 23 02/19/2023 COMPR EHENS LB METAB OLIC PANEL creatinine 0.77 mg/dL 0.50-0 .99 normal Not Available [address], [address], 02/19/2023 16:38:44 02/18/20 23 02/19/2023 COMPR EHENS LB METAB OLIC PANEL eGFR 97 mL/mi n/1.7 3m2 > or = 60 normal The eGFR is based on the CKD-E PI 2020 kilo rudolph. To calcu late the new eGFR from a previ ous Creat inine or Cysta tin C resul t, go to https ://amari oviedo.itz mccarthy/mindy hernandez s/ kdoqi /gfr% 5Fcal culat or Not Available [address], [address], 02/19/2023 16:38:44 02/18/20 23 02/19/2023 COMPR EHENS LB METAB OLIC PANEL BUN/creatini ne ratio NOT APPLIC ABLE (calc ) 6-22 Not Available [address], [address], 02/19/2023 16:38:44 02/18/20 23 02/19/2023 COMPR EHENS LB METAB OLIC PANEL sodium 137 mmol/ L 135-14 6 normal Not Available [address] [place], [address], 02/19/2023 16:38:44 02/18/20 23 02/19/2023 COMPR EHENS LB METAB OLIC PANEL potassium 4.2 mmol/ L 3.5-5. 3 normal Not Available [address], [address], 02/19/2023 16:38:44 02/18/20 23 02/19/2023 COMPR EHENS LB METAB OLIC PANEL chloride 102 mmol/ L 98-110 normal Not Available [address], [address], 02/19/2023 16:38:44 02/18/20 23 02/19/2023 COMPR EHENS LB METAB OLIC PANEL carbon dioxide 27 mmol/ L 20-32 normal Not Available [address], [address], 02/19/2023 16:38:44 02/18/20 23 02/19/2023 COMPR EHENS LB METAB OLIC PANEL calcium 9.3 mg/dL 8.6-10 .2 normal Not Available [address], [address], 02/19/2023 16:38:44 02/18/20 23 02/19/2023 COMPR EHENS LB METAB OLIC PANEL protein, total 6.5 g/dL 6.1-8. 1 normal Not Available [address], [address], 02/19/2023 16:38:44 02/18/20 23 02/19/2023 COMPR EHENS LB METAB OLIC PANEL albumin 3.7 g/dL 3.6-5. 1 normal Not Available [address], [address], 02/19/2023 16:38:44 02/18/20 23 02/19/2023 COMPR EHENS LB METAB OLIC PANEL globulin 2.8 g/dL_ (calc ) 1.9-3. 7 normal Not Available [address], [address], 02/19/2023 16:38:44 02/18/20 23 02/19/2023 COMPR EHENS LB METAB OLIC PANEL albumin/glob ulin ratio 1.3 (calc ) 1.0-2. 5 normal Not Available [address], [address], 02/19/2023 16:38:44 02/18/20 23 02/19/2023 COMPR EHENS LB METAB OLIC PANEL bilirubin, total 0.3 mg/dL 0.2-1. 2 normal Not Available [address], [address], 02/19/2023 16:38:44 02/18/20 23 02/19/2023 COMPR EHENS LB METAB OLIC PANEL alkaline phosphatase 71 U/L 31-125 normal Not Available [address], [address], 02/19/2023 16:38:44 02/18/20 23 02/19/2023 COMPR EHENS LB METAB OLIC PANEL AST 13 U/L 10-30 normal Not Available [address], [address], 02/19/2023 16:38:44 02/18/20 23 02/19/2023 COMPR EHENS LB METAB OLIC PANEL ALT 17 U/L 6-29 normal Not Available [address], [address], 02/19/2023 16:38:44 02/18/20 23 02/19/2023 THYRO ID PEROX IDASE ANTIB ODIES thyroid peroxidase antibodies 368 IU/mL <9 high Not Available 12 [address], [address], 02/19/2023 16:38:45 02/18/20 23 02/19/2023 VITAM IN B12/F OLATE , SERUM PANEL vitamin B12 759 pg/mL 200-11 00 normal Not Available [address], [address], 02/19/2023 16:38:46 02/18/20 23 02/19/2023 VITAM IN B12/F OLATE , SERUM PANEL folate, serum >24.0 NG/mL normal Refer ence Range Low: <3.4 Borde rline : 3.4-5 .4 Keisha l: >5.4 Not Available [address], [address], 02/19/2023 16:38:46 02/18/20 23 02/19/2023 T3, FREE T3, free 2.7 pg/mL 2.3-4. 2 normal Not Available [address], [address], 02/19/2023 16:38:47 02/18/20 23 02/19/2023 TSH+F REE T4 TSH 6.32 mIU/L high Refer ence Range > or = 20 Years 0.40- 4.50 Pregn mali Range s First trime ster 0.26- 2.66 Secon d trime ster 0.55- 2.73 Third trime ster 0.43- 2.91 Not Available [address], [address], 02/19/2023 16:38:47 02/18/20 23 02/19/2023 TSH+F REE T4 T4, free 1.1 NG/dL 0.8-1. 8 normal Not Available [address], [address], 02/19/2023 16:38:47 08/18/20 23 08/19/2023 LIPID PANEL , STAND LORRAINE cholesterol, total 207 mg/dL <200 high Not Available [facility] [address] [place], [address], 08/19/2023 15:06:32 08/18/20 23 08/19/2023 LIPID PANEL , STAND LORRAINE HDL cholesterol 67 mg/dL > or = 50 normal Not Available [facility] [address] [place], [address], 08/19/2023 15:06:32 08/18/20 23 08/19/2023 LIPID PANEL , STAND LORRAINE triglyceride s 103 mg/dL <150 normal Not Available [facility] [address] [place], [address], 08/19/2023 15:06:32 08/18/20 23 08/19/2023 LIPID PANEL , STAND LORRAINE LDL-choleste rol 119 mg/dL _(beau c) high Refer ence range : <100 Chris able range <100 mg/dL for prima ry preve ntion ; <70 mg/dL for patie nts with CHD or diabe tic patie nts with > or = 2 CHD risk facto rs. LDL-C is now calcu lated using the Jessenia n-Hop kins benedictou hue n, which is a valid ated novel milenao d andrea abdi r accur acy than the Fried eliot equat ion in the estim ation of LDL-C . Jessenia birmingham SS et al. YOGESH. 2013; 310(1 9): 2061- 2068 (http ://ed ucati on.Qu Curtis sagastume Loaded Commerces. com/f aq/FA Q164) Not Available [facility] [address] [place], [address], 08/19/2023 15:06:32 08/18/20 23 08/19/2023 LIPID PANEL , STAND LORRAINE chol/HDLC ratio 3.1 (calc ) <5.0 normal Not Available [facility] [address] [place], [address], 08/19/2023 15:06:32 12/23/20 23 08/19/2023 LIPID PANEL , STAND LORRAINE non HDL cholesterol 140 mg/dL _(beau c) <130 high For patie nts with diabe shawn plus 1 major ASCVD risk facto r, treat ing to a non-H DL-C goal of <100 mg/dL (LDL- C of <70 mg/dL ) is ayesha montez optio n. Not Available [address] [address] [place], [address], 08/19/2023 15:06:32 08/18/20 23 08/19/2023 COMPR EHENS LB METAB OLIC PANEL glucose 89 mg/dL 65-99 normal Fasti ng refer ence inter brenton Not Available [address] [address] [place], [address], 08/19/2023 15:06:34 08/18/20 23 08/19/2023 COMPR EHENS LB METAB OLIC PANEL urea nitrogen (BUN) 9 mg/dL 7-25 normal Not Available [address] [address] [place], [address], 08/19/2023 15:06:34 08/18/20 23 08/19/2023 COMPR EHENS LB METAB OLIC PANEL creatinine 0.63 mg/dL 0.50-0 .99 normal Not Available [address] [address] [place], [address], 08/19/2023 15:06:34 08/18/20 23 08/19/2023 COMPR EHENS LB METAB OLIC PANEL eGFR 112 mL/mi n/1.7 3m2 > or = 60 normal Not Available [address], [address], 08/19/2023 15:06:34 08/18/20 23 08/19/2023 COMPR EHENS LB METAB OLIC PANEL BUN/creatini ne ratio SEE NOTE: (calc ) 6-22 Not Repor dee: BUN and Creat inine are withi n refer ence range . Not Available [address] [address] [place], [address], 08/19/2023 15:06:34 08/18/20 23 08/19/2023 COMPR EHENS LB METAB OLIC PANEL sodium 137 mmol/ L 135-14 6 normal Not Available [address] [address] [place], [address], 08/19/2023 15:06:34 08/18/20 23 08/19/2023 COMPR EHENS LB METAB OLIC PANEL potassium 4.2 mmol/ L 3.5-5. 3 normal Not Available [address] [address] [place], [address], 08/19/2023 15:06:34 08/18/20 23 08/19/2023 COMPR EHENS BL METAB OLIC PANEL chloride 104 mmol/ L 98-110 normal Not Available [address] [address] [place], [address], 08/19/2023 15:06:34 08/18/20 23 08/19/2023 COMPR EHENS LB METAB OLIC PANEL carbon dioxide 26 mmol/ L 20-32 normal Not Available [address] [address] [place], [address], 08/19/2023 15:06:34 08/18/20 23 08/19/2023 COMPR EHENS LB METAB OLIC PANEL calcium 9.0 mg/dL 8.6-10 .2 normal Not Available [facility] [address] [address] [place], [address], 08/19/2023 15:06:34 08/18/20 23 08/19/2023 COMPR EHENS LB METAB OLIC PANEL protein, total 6.8 g/dL 6.1-8. 1 normal Not Available [address] [address] [place], [address], 08/19/2023 15:06:34 08/18/20 23 08/19/2023 COMPR EHENS LB METAB OLIC PANEL albumin 3.8 g/dL 3.6-5. 1 normal Not Available [address], [address], 08/19/2023 15:06:34 08/18/20 23 08/19/2023 COMPR EHENS LB METAB OLIC PANEL globulin 3.0 g/dL_ (calc ) 1.9-3. 7 normal Not Available [address], [address], 08/19/2023 15:06:34 08/18/20 23 08/19/2023 COMPR EHENS LB METAB OLIC PANEL albumin/glob ulin ratio 1.3 (calc ) 1.0-2. 5 normal Not Available [address], [address], 08/19/2023 15:06:34 08/18/20 23 08/19/2023 COMPR EHENS LB METAB OLIC PANEL bilirubin, total 0.3 mg/dL 0.2-1. 2 normal Not Available [address], [address], 08/19/2023 15:06:34 08/18/20 23 08/19/2023 COMPR EHENS LB METAB OLIC PANEL alkaline phosphatase 73 U/L 31-125 normal Not Available [address] [address] [place], [address], 08/19/2023 15:06:34 08/18/20 23 08/19/2023 COMPR EHENS LB METAB OLIC PANEL AST 14 U/L 10-30 normal Not Available [address], [address], 08/19/2023 15:06:34 08/18/20 23 08/19/2023 COMPR EHENS LB METAB OLIC PANEL ALT 14 U/L 6-29 normal Not Available [address] [address] [place], [address], 08/19/2023 15:06:34 08/18/2008/19/2023 VITAM IN B12/F OLATE , SERUM PANEL vitamin B12 719 pg/mL 200-11 00 normal Not Available [address], [address], 08/19/2023 15:06:35 08/18/2008/19/2023 VITAM IN B12/F OLATE , SERUM PANEL folate, serum >24.0 NG/mL normal Refer ence Range Low: <3.4 Borde rline : 3.4-5 .4 Keisha l: >5.4 Not Available [address], [address], 08/19/2023 15:06:35 08/18/2008/19/2023 T3, FREE T3, free 2.7 pg/mL 2.3-4. 2 normal Not Available [address], [address], 08/19/2023 15:06:36 08/18/2008/19/2023 TSH W/REF MARCO TO FT4 TSH w/reflex to FT4 4.35 mIU/L normal Refer ence Range > or = 20 Years 0.40- 4.50 Pregn mali Range s First trime ster 0.26- 2.66 Secon d trime ster 0.55- 2.73 Third trime ster 0.43- 2.91 Not Available [address], [address], 08/19/2023 15:06:37 08/18/2008/24/2023 TEST AUTHO RIZAT ION test name: T4, FREE Not Available [address], [address], 08/24/2023 17:47:33 08/18/2008/24/2023 TEST AUTHO RIZAT ION test code: 866SB Not Available [address] [address] [place], [address], 08/24/2023 17:47:33 08/18/20 23 08/24/2023 TEST AUTHO RIZAT ION client contact: GISSELLE GONZALEZ Not Available [address] [address] [address] , [place], [address], 08/24/2023 17:47:33 08/18/20 23 08/24/2023 TEST AUTHO RIZAT ION report always message signature The labor atory testi ng on this patie nt was verba lly reque sted or confi rmed by the order ing physi nicole or his or her autho rized repre senta tive after conta ct with an emplo huggins of [facility] Pat[facility] al regul ation s requi re that we maint ain on file writt en autho rizat ion for all labor atory testi ng. Accor dingl y we are askin g that the order ing physi nicole or his or her autho rized repre senta tive sign a copy of this repor t and promp tly retur n it to the clien t servi ce repre senta tive. Signa ture: __ Not Available [facility] [address] [address] [address], [place], [address], 08/24/2023 17:47:33 08/18/2008/24/2023 TEST AUTHO RIZAT ION comment Fax martha r: [phone] Not Available [address] [address] [place], [address], 08/24/2023 17:47:33 08/18/20 23 08/24/2023 T4, FREE T4, free 1.5 NG/dL 0.8-1. 8 normal Not Available [facility] [address] [place], [address], 08/24/2023 17:47:33 10/22/19 24 10/20/2023 MAMMO , scree thom, digit al, bilat eral No observ ation record ed. llalor [facility] [address], [place], [address], 10/25/2023 15:09:29 Result Notes None recorded. 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's thyroiditis 381058616 Active 2021 Not Available [facility] 3 23:03:48 Vitamin B12 deficiency (non anemic) 88741035 Active 2021 Not Available [facility] 3 23:03:48 Hypothyroidis m 09247026 Active 2022 Casi Miller MD [address], [place], [address] , [facility] 3 17:41:26 Migraine 60034835 Active 2022 Lakisha Mcgovern MD [address], [place], [address] , [facility] 3 16:03:25 Depressive disorder 74289472 Active 2023 Lakisha Mcgovern MD [address], [place], [address] , [employer] 4 09:24:49 Problem Notes None recorded. Procedures Surgical History Date Name Laterality Status Provider Name and Address Organization Details Recorded Time 10/20/19 Most Recent Mammogram completed Gisselle Gonzalez LPN [facility] 10/25/2023 15:06:52 Appendectomy completed Not Available [facility] 10/25/2022 23:03:08 Elbow arthroscopy/surge ry completed Not Available [facility] 10/25/2022 23:03:08 release of trigger finger completed Not Available [facility] 10/25/2022 23:03:08 Tonsillectomy completed Not Available [facility] 10/25/2022 23:03:08 Imaging Results Imaging Date Name Status LastModified by Organiz ation Details LastModified Time 10/20/2023 MAMMO, screening, digital, bilateral completed aimee [facility] [address], [place], [address], 10/25/2023 15:09:29 Procedure Notes None recorded. Medical Equipment None Reported. Allergies No known drug allergies Medications Name Sig Start Date Stop Date Status Note LastModified by Organization Details LastModified Time amoxicillin 500 mg capsule TAKE ONE CAPSULE BY MOUTH EVERY 6 HOURS UNTIL ALL TAKEN 04/01 completed Not Available Not Available Not Available propranolol 80 mg tablet TAKE 1 TABLET BY MOUTH TWICE DAILY active Not Available Not Available No t Available cyanocobala min (vit B-12) 2,[address] 1 tablet every day by sublingua l route in the morning for 90 days. 03/01 completed Not Available Not Available Not Available azithromyci n 250 mg tablet 12/30 completed Not Available Not Available Not Available meloxicam 15 mg tablet TAKE 1 TABLET BY MOUTH EVERY DAY 03/01 completed Not Available Not Available Not Available Synthroid 125 mcg tablet TAKE 1 TABLET EVERY MORNING FOR HYPOTHYRO IDISM active Not Available Not Available No t Available Synthroid 100 mcg tablet one tablet daily x 90 days 08/13 completed Not Available Not Available Not Available phentermine 37.5 mg tablet TAKE 1 TABLET BY MOUTH EVERY DAY 03/01 completed Not Available Not Available Not Available levothyroxi ne 25 mcg tablet TAKE 1 AND 1/2 TABLETS BY MOUTH EVERY MORNING AT LEAST 30 MINUTES BEFORE EATING/DR ZARAGOZA 04/01 completed Not Available Not Available Not Available levothyroxi ne 75 mcg tablet 04/01 completed Not Available Not Available Not Available levothyroxi ne 88 mcg tablet TAKE 1 TABLET BY MOUTH EVERY DAY BEFORE MEALS 12/30 completed Not Available Not Available Not Available benzonatate 100 mg capsule TAKE 1 CAPSULE BY MOUTH THREE TIMES DAILY NEEDED 12/30 completed Not Available Not Available Not Available dexamethaso ne 2 mg tablet TAKE 3 TABLETS BY MOUTH EVERY DAY FOR 10 DAYS 05/16 completed Not Available Not Available Not Available levothyroxi ne 50 mcg tablet TAKE 1 TABLET BY MOUTH EVERY DAY 04/01 completed Not Available Not Available Not Available cyanocobala min (vit B-12) 1,000 mcg/mL injection solution ADMINISTE R 1 ML UNDER THE SKIN EVERY WEEK DIRECTED active Not Available Not Available No t Available albuterol sulfate HFA 90 mcg/actuati on aerosol inhaler INHALE 2 PUFFS BY MOUTH EVERY 4 HOURS NEEDED 03/01 completed Not Available Not Available Not Available vilazodone 40 mg tablet TAKE 1 TABLET BY MOUTH EVERY DAY WITH A MEAL active Not Available Not Available No t Available TRUEplus Insulin 1 mL 31 gauge x 5/16 syringe USE TO INJECT B12 SUBCUTANE OUS ONCE A WEEK X 90 DAYS active Not Available Not Available No t Available Blisovi Fe 09/15 (28) 1 mg-20 mcg (21)/75 mg (7) tablet TAKE 1 TABLET BY MOUTH EVERY DAY DIRECTED active Not Available Not Available No t Available Norlyda 0.35 mg tablet TAKE 1 TABLET BY MOUTH EVERY DAY 03/01 completed Not Available Not Available Not Available Ubrelvy 100 mg tablet 03/01 completed Not Available Not Available Not Available Vitals Date Recorded Body mass index (BMI) Body height Oxygen saturation Oxygen saturation in Arterial blood by Pulse oximetry Heart rate Body temperature Body weight Systolic blood pressure Diastolic blood pressure Provider Name and Address Organization Details Last Updated DateTime 2 46.7 kg/m2 155.58 cm 95 % 95 % 68 /min 98 [degF] 760783. 5 g 110 mm[Hg] 90 mm[Hg] Not Available [facility] 3 23:03:22 Date Recorded Body mass index (BMI) Body height Oxygen saturation Oxygen saturation in Arterial blood by Pulse oximetry Heart rate Body temperature Body weight Systolic blood pressure Diastolic blood pressure Provider Name and Address Organization Details Last Updated DateTime 2 43.4 kg/m2 155.58 cm 97 % 97 % 70 /min 97.7 [degF] 121497. 71 g 130 mm[Hg] 80 mm[Hg] Not Available [facility] 3 23:03:23 Date Recorded Body height Body mass index (BMI) Body weight Body temperature Heart rate Systolic blood pressure Diastolic blood pressure Provider Name and Address Organization Details Last Updated DateTime 3 155.58 cm 47.3 kg/m2 477390. 43 g 98.1 [degF] 69 /min 139 mm[Hg] 83 mm[Hg] RANJAN Javier PA [facility] 3 17:14:25 Date Recorded Body height Body mass index (BMI) Body weight Body temperature Heart rate Oxygen saturation Oxygen saturation in Arterial blood by Pulse oximetry Systolic blood pressure Diastolic blood pressure Provider Name and Address Organization Details Last Updated DateTime 3 155.58 cm 47.8 kg/m2 019694. 05 g 97.8 [degF] 96 /min 97 % 97 % 146 mm[Hg] 88 mm[Hg] Jose Park RN PA [facility] 3 15:54:25 Social History Question Answer Notes LastModified by Organizat ion Details LastModified Time Tobacco Smoking Status Former Smoker quit smoking around 2015 Lakisha Mcgovern MD [address] [place] [address], [address], [facility] 08/13/2023 16:01:21 Do You Have An Advance Directive? No [id number] Information not available 10/25/2022 What Is Your Level Of Alcohol Consumption? Occasional [id number].[id number] Information not available 10/25/2022 What Is Your Level Of Caffeine Consumption? Moderate MIGRATION.34197 [id number] Information not available 10/25/2022 In The 14 Days Before Symptom Onset, Have You Had Close Contact With A Laboratory-confir med COVID-19 While That Case Was Ill? No [id number] Information not available 10/25/2022 In The 14 Days Before Symptom Onset, Have You Had Close Contact With A Person Who Is Under Investigation For COVID-19 While That Person Was Ill? No [id number].[id number] Information not available 10/25/2022 What Type Of Diet Are You Following? REGULAR MIGRATION.27370 [id number] Information not available 10/25/2022 What Is The Highest Grade Or Level Of School You Have Completed Or The Highest Degree You Have Received? 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 6-10yearssinc elastcigarett e MIGRATION.19102 [id number] Information not available 10/25/2022 Do You Have A Medical Power Of Body Designer? No MIGRATION.07902 37828 Information not available 10/25/2022 Have You Ever Been Counseled For Unhealthy Alcohol Use? No MIGRATION.63552 78196 Information not available 10/25/2022 What Is Your Relationship Status? Single MIGRATION.84605 [id number] Information not available 10/25/2022 Do You Use Any Illicit Or Recreational Drugs? No MIGRATION.27294 26527 Information not available 10/25/2022 Have You Recently Traveled Abroad? No MIGRATION.54275 66320 Information not available 10/25/2022 Do You Or Have You Ever Used Any Other Forms Of Tobacco Or Nicotine? No MIGRATION.64525 14000 Information not available 10/25/2022 Sex: Female Functional Status None recorded. Mental Status None recorded. Family History Relationship Description Onset Age of this Age Resolved Age Notes LastModified by Organization Details LastModified Time Maternal Grandfather Heart disease [id number] Not available 10/25/2022 23:03:09 Paternal Grandfather Malignant tumor of lung [id number] [id number] Not available 10/25/2022 23:03:09 Paternal Grandmother Malignant tumor of lung [id number] Not available 10/25/2022 23:03:09 Notes:Great aunt paternal si de breast cancer Medical History Condition Response THYROID DISEASE Y HEADACHES/MIGRAINES Y OBESITY Y DEPRESSION (INCLUDING POST ) Y Gynecological History Statement/Question Response Most Recent Mammogram 10/20/2023 Obstetrics History GPAL:G 0 P 0 0 0 0 Past Encounters Encounter ID Performer Location Encounter Start Date Encounter Closed Date Diagnosis/Indication Diagnosis SNOMED-CT Code Diagnosis ICD10 Code Diagnosis Note [id number] [facility] [place] [address] [place] [address] 04/01/2021 00:00:00 04/01/2021 13:03:27 [id number] [facility] [place] [address] [place], [place] [address] 05/16/2021 00:00:00 05/16/2021 12:32:32 [id number] [facility] [place] [address] [place], [place] [address] 12/30/2021 00:00:00 12/30/2021 11:54:42 [id number] [facility] [place] [address] [place], [place] [address] 07/07/2022 00:00:00 07/07/2022 14:32:04 [id number] Casi Miller MD [facility] [place] [address] [place], [place] [address] 03/01/2023 17:01:41 03/01/2023 18:01:58 Hypothyroidism 70631180 E03.9 FT4 low range with high TSH- will uptitrate synthroid to 125 mcg daily. She was reminded to take her synthroid on empty stomach with glass of water and wait one hour to eat or have her coffee in morning and up to 4 hours if ever taking any heartburn or reflux medication s to help optimize absorption . Discussed paleo like diet with restrictio n of GMOs to help with energy and to optimize absorption of vitamins and minerals and reduce inflammati on. Vitamin B1 2 deficiency (non anemic) 13348038 E53.8 Continue on B12 injections weekly as this has helped with energy and focus overall. Spent up to 25 minutes preparing to see the patient (eg, review of tests), obtaining and/or reviewing separately obtained history, performing a medically appropriat e examinatio n and evaluation , counseling and educating the patient, ordering medication s, tests, along with documentin g clinical informatio n in the electronic health record, independen tly interpreti ng results and communicat ing results to the patient. RT in 6 months. Patient was provided a handwritte n lab order which contains our fax number. If she chooses to go outside of the [facility] system to obtain labwork she was advised to provide our fax number and my informatio n to the lab she will be obtaining labwork from in order to have her labs properly forwarded over for me to review so there is no loss of follow up due to use of outside network. She was also advised to contact our clinic informing us that she has completed her labwork so we are aware we will need to reach out to the appropriat e laboratory to request her results be forwarded to us so I might have the ability to review and make further medical decision making in her case. She voiced understand ing. [id number] Lakisha Mcgovern MD [facility] [address] [place] [address] 08/13/2023 15:49:09 08/13/2023 16:17:15 Hypothyroidism 12401261 E03.9 repeat labs and adjust as neededcurr ently on synthroid 125 mcg daily Vitamin B1 2 deficiency (non anemic) 06963343 E53.8 Hyperlipid emia screening 081848265 Z13.220 Z13.1 Health Concerns Section Related Observation LastModified by Organization Detai ls LastModified Time None Recorded Concern Status LastModified by Organization Details LastModified Time None Recorded Advance Directives Directive N: Payers Encounter Date Sequence Insurance Name Policy Number Policy Regalado Covered Member ID Regalado Member ID Guarantor Name 03/01/2023 1 R [id number] Brenda Saldivar [id number] Brenda Saldivar 08/13/2023 1 R [id number] Brenda Saldivar [id number] Brenda Saldivar Notes Date Note Type Note Provider Name and Address Organization Details Recorded Time 03/01/2023 text/html 42 yo female com es in for follow up in management of hypothyroidism and B12 def. last seen in jun at that time we continued synthroid 100 mcg daily along with phentermine for brain fog. we continued B12 supplementation. She has struggled with fatigue and now better on the B12 injections. She is really watching her gluten intake- she feels like something else in her diet is causing weight gain. Patient has gained 20 pounds since winter 2021. 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 No chest pain or sob. Lakisha Mcgovern MD [address], [facility] [address], [place], [address], [facility] [employer] [facility] 08/23/2023 17:53:45 OBGyn Episode No OBEpisode recorded.
--- OUTSIDE RECORDS SUMMARY | 2024-11-14 00:47 | XMS_ITS | Clinical Summary ---
Author Organization [facility] Address [address] [place] [address] Care Team Providers Care Junior Systems Administrator Name Role Phone Unavailable Primary Care Provider Unavailabl e Source Comments [facility],non-owned Affiliates and Associated Physician Practices is amultiple site organization consisting of ambulatory clinics and hospital sitesin [place], [place], [place] and [place]. This disclosure is being madepursuant to the Care Everywhere program and may not contain all information available regarding this patient. Last updated 18.Kwanji [facility] Allergies No known active allergies Medications * Be aware that medications may not be up to date on this document. Alwaysverify current medications with the patient. Medication Sig Dispensed Refills Start Date End Date Status norethindone-ethinyl estradiol-FE (LOESTRIN 24 FE) 1-20 MG-MCG(24) tablet Take 1 Tab by mouth daily. 28 Packet 5 07/26/2010 Active citalopram (CELEXA) 40 MG tablet Take 1 Tab by mouth daily. 30 Tab 5 07/26/2010 Active Active Problems Problem Noted Date Diagnosed Date Cervical cancer screening Overview (07/26/2010): 11-10 Breast cancer screening Overview (07/26/2010): 2-09 Anxiety Migraines Family History Medical History Relation Name Comments Migraine Father CAD (Coronary Artery Disease) Maternal Grandfather Stroke Maternal Grandmother Cancer Paternal Grandfather lung Cancer Paternal Grandmother lung Migraine Paternal Grandmother Migraine Sister Relation Name Status Comments Father Maternal Grandfather Maternal Grandmother Paternal Grandfather Paternal Grandmother Sister Social History Tobacco Use Types Packs/Day Years Used Date Smoking Tobacco: Every Day Cigarettes Smokeless Tobacco: Never Alcohol Use Standard Drinks/Week Comments Yes 0 (1 standard drink = 0.6 oz pur e alcohol) social Sex and Gender Information Value Date Recorded Sex Assigned at Not on file Gender Identity Not on file Sexual Orientation Not on file Last Filed Vital Signs Vital Sign Reading Time Taken Comments Blood Pressure 116/70 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 Pulse 70 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 Temperature - - Respiratory Rate 16 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 Oxygen Saturation - - Inhaled Oxygen Concentration - - Weight 88.9 kg (196 lb 0.8 oz) 07/26/2010 2:45 P M 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 Height 154.9 cm (5' 1 ) 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 Body Mass Index 37.04 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 Plan of Treatment Health Maintenance Due Date Last Done Comments COLOGUARD (AGES 45-75) - COL ON CA SCREENING 1978 COLON MONITORING 1978 COLONOSCOPY - COLON CA SCREENING 1978 CT COLONOGRAPHY - COLON CA SCREENING 1978 Colorectal Cancer Screening 1978 FIT - COLON CA SCREENING 1978 FLEX SIG - COLON CA SCREENING 1978 LIPID TESTING 1978 HIV SCREENING 1993 HEPATITIS C SCREENING 09/15/1996 DTAP/TDAP/TD VACCINES (1 - Tdap) 1997 HEPATITIS B VACCINE (1 of 3 - 19+ 3-dose series) 1997 PNEUMOCOCCAL VACCINE (1 of 2 - PCV) 1997 MAMMOGRAM 09/27/2009 09/27/2008 (Previously completed) PAP SMEAR 07/08/2013 07/08/2010 (Previously completed), 07/08/2010 (Previously completed) COVID-19 VACCINE (2023-2 5 season) 2024 INFLUENZA VACCINE (#1) 2024 DEPRESSION SCREENING 08/27/2024 ZOSTER VACCINE (1 of 2) 2028 HIB VACCINE Aged Out No longer eligi ble based on patient's age to complete this topic HPV VACCINE Aged Out No longer eligi ble based on patient's age to complete this topic MENINGOCOCCAL (Group B) VACCINE SHARED DECISION-MAKING Aged Out No longer eligible based on patient's age to complete this topic MENINGOCOCCAL GROUPS A/C/Y/W VACCINE Aged Out No longer eligible b ased on patient's age to complete this topic
--- OUTSIDE RECORDS SUMMARY | 2024-11-14 00:48 | XMS_ITS | Clinical Summary ---
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 I suspect majority of this is in combination physiologic swelling as well as some swelling due to her chronic popliteal deep vein thrombosis. She is going to continue working on weight loss and continue compression therapy. Can discontinue her anticoagulation from my standpoint. Can follow up with me as needed. Acute pain of right knee 09/10/2024 Hamstring injury 09/10/2024 Pain of left calf 09/10/2024 Strain of calf muscle 09/10/2024 Hyperlipidemia 06/09/2020 Assessment & Plan (09/10/2024 12:52 PM FISH PEDDLER): Updated labs ordered. Hypomagnesemia 06/09/2020 Hypothyroidism 06/09/2020 Assessment & Plan (09/10/2024 12:52 PM FISH PEDDLER): Follows with Dr Miller, making appt. Updated labs ordered and continuing Synthroid 125 mcg daily. Vitamin D deficiency 06/09/2020 Major depressive disorder 06/08/2019 Migraines 06/08/2019 Assessment & Plan (09/10/2024 12:53 PM FISH PEDDLER): Migraines tend to be clustery in nature. Will have headache 5/7 days/week. Has tried Midrine, Ubrelvy, Imitrex, Imitrex IM, Nurtec, Topamax. On Propranolol 80 mg BID for heart rate and migraines but only helps with the heart rate portion. Discussed starting daily Amitriptyline or Nortriptyline, possibly Qulipta . Patient will consider. Spinal enthesopathy 05/02/2016 Acquired trigger finger 02/06/2014 Anxiety 01/10/2014 Overview (11/30/2016): Anxiety Encounters Date Type Department Care Team Description 10/15/2024 9:30 AM FISH PEDDLER Office Visit [facility] Vascular at [address] [place] [address] Darwin Hickey MD Mixed hyperlipidemia (Primary Dx); Chronic deep vein thrombosis (DVT) of left popliteal vein (HCC); Saphenofemoral venous reflux 09/26/2024 Orders Only [facility] Primary Care at [address] [address] Torrie Carter NP Chronic deep vein thrombosis (DVT) of left popliteal vein (HCC) (Primary Dx); Saphenofemoral venous reflux 09/24/2024 3:00 PM FISH PEDDLER Ancillary Procedure [facility] Vascular and Vein Surgery at [address] [place] [phone] Swelling of left lower extremity 09/16/2024 Telephone [facility] Primary Care at [address] [address] Torrie Carter NP Test Results 09/10/2024 11:00 AM FISH PEDDLER Office Visit [facility] Primary Care at [address] [address] Torrie Carter NP Migraine with aura and without status migrainosus, not intractable (Primary Dx); Swelling of left lower extremity; Mixed hyperlipidemia; Acquired hypothyroidism; Vitamin D deficiency; Encounter for screening examination for intermediate hyperglycemia and diabetes mellitus; Encounter for hepatitis C screening test for low risk patient; Class 3 severe obesity due to excess calories without serious comorbidity with body mass index (BMI) of 45.0 to 49.9 in adult (HCC) from Last 3 Months Immunizations Immunization Administration Dates Next Due Influenza, Quadrivalent, Split, Intramuscular Influenza, Unspecified 08/27/2024,06/25/2024 Surgical History Surgery Date Site/Laterality Comments TONSILLECTOMY Tonsillectomy HAND SURGERY hand surgery--trigger finger OTHER SURGICAL HISTORY 2012 cubital tunnel surgery APPENDECTOMY Medical History Medical History Date Comments Anxiety Depression Migraines Thyroid disease Autoimmune disease Paige's disease Family History Medical History Relation Name Comments Hypertension Father Other Other 1 No family histo ry of Anemia; Other Other 2 Family history of immune disease; Lung cancer Paternal Grandfather Prostate cancer Paternal Grandfather Lung cancer Paternal Grandmother Relation Name Status Comments Father Other 1 Other 2 Paternal Grandfather Paternal Grandmother Social History Tobacco Use Types Packs/Day Years Used Date Smoking Tobacco: Former Cigarettes Q uit: 08/27/2012 Tobacco Cessation:Counseling Given: Not Answered Alcohol Use Standard Drinks/Week Comments No 0 (1 standard drink = 0.6 oz pur e alcohol) PHQ-2 Answer Date Recorded PHQ-2 Total Score (If total score is 3 or more points, staff should administer the PHQ-9) 0 09/10/2024 Comments Unknown Sex and Gender Information Value Date Recorded Sex Assigned at Not on file Legal Sex Female 2:01 AM FISH PEDDLER Gender Identity Not on file Sexual Orientation Not on file Obstetrics History Last Filed Vital Signs Vital Sign Reading Time Taken Comments Blood Pressure 138/85 10/15/2024 9:41 AM FISH PEDDLER Pulse 77 10/15/2024 9:41 AM FISH PEDDLER Temperature 37 C (98.6 F) 09/10/2024 11:04 AM FISH PEDDLER Respiratory Rate - - Oxygen Saturation 96% 10/15/2024 9:41 AM FISH PEDDLER Inhaled Oxygen Concentration - - Weight 117 kg (258 lb) 10/15/2024 9:41 AM FISH PEDDLER Height 154.9 cm (5' 1 ) 10/15/2024 9:41 AM FISH PEDDLER Body Mass Index 48.75 10/15/2024 9:41 AM FISH PEDDLER Plan of Treatment Health Maintenance Due Date Last Done Comments DTaP/Tdap/Td Vaccine (1 - Tdap) 1989 Hepatitis B Screening 1996 Regular Well Visit/Exam 18-64 1996 Covid-19 Vaccine (3 - 2023-2 5 season) 2024 09/29/2020, 09/08/2020 Colon Cancer Screening-Colonoscopy 11/13/2024 Postponed from (Patient declined, but will receive in the future) Breast Cancer Screening-Mammogram 11/23/2024 Postponed from 09/20 (Patient declined, but will receive in the future) Depression Screening 09/10/2025 09/10/2024 Cervical Cancer Screening 06/27/2026 06/27/2023 Influenza Vaccine Completed 08/27/2024, 06/25/2024, 06/06/2019 Hepatitis C Screening Completed 09/13/2024 HPV Vaccines Aged Out No longer eligi ble based on patient's age to complete this topic Pneumococcal vaccine <65 Aged Out No longer eligible based on patient's age to complete this topic Procedures Procedure Name Priority Date/Time Associated Diagnosis Comments US VEIN DUPLEX REFLUX LEFT Schedule Routine, Read Routine (OP Routine) 09/24/2024 3:20 PM FISH PEDDLER Swelling of left lower extremity VITAMIN D 25 HYDROXY Routine 09/13/2024 10:06 AM FISH PEDDLER Vitamin D deficiency THYROID FUNCTION CASCADE Routine 09/13/2024 10:06 AM FISH PEDDLER Acquired hypothyroidism LIPID PANEL Routine 09/13/2024 10:06 AM FISH PEDDLER Mixed hyperlipidemia HEMOGLOBIN A1C Routine 09/13/2024 10:06 AM FISH PEDDLER Encounter for screening examination for intermediate hyperglycemia and diabetes mellitus COMPREHENSIVE METABOLIC PANEL Routine 09/13/2024 10:06 AM FISH PEDDLER Mixed hyperlipidemia CBC WITH AUTO DIFFERENTIAL Routine 09/13/2024 10:06 AM FISH PEDDLER Mixed hyperlipidemia HEPATITIS C ANTIBODY Routine 09/13/2024 10:06 AM FISH PEDDLER Encounter for hepatitis C screening test for low risk patient from Last 3 Months Results * US Venous Reflux Left (09/24/2024 3:20 PM FISH PEDDLER) LV EF % CONS SCIMAGE Anatomical Region Laterality Modality Vascular Left Ultrasound 09/24/2024 2:59 PM FISH PEDDLER Narrative 09/26/2024 7:31 AM FISH PEDDLER Vascular & Vein Surgery [address] [place] [address] Lower Extremity Venous Reflux Duplex Report Patient Name: BRENDA SALDIVAR B : 1980 (44y ) Study Date: 09/24/2024 2:59:39 PM Gender: F Glaze Supervisor: Location: [facility] Ref Provider: TORRIE CARTER Quality: Adequate Order Provider: TORRIE CARTER PROCEDURES: Vascular Report: Lower extremity venous valvular insufficiency or reflux evaluation is performed with manual augmentation. Veins evaluated are sapheno-femoral junction, great saphenous, common femoral, femoral, profunda femoral, popliteal, sapheno-popliteal and small saphenous veins bilaterally. Criteria for superficial vein reflux is retrograde blood flow greater than 0.5 seconds in the standing position. INDICATIONS: Chronic LLE edema. HISTORY: Hyperlipidemia. Former smoker. COMPARISONS: The previous exam was completed on 05/22/23. MEASUREMENTS: Right Value Left Value Rt Sapheno-Femoral Junction mm Lt Sapheno-Femoral Junction 10.31 mm Rt Great Saphenous Thigh - Proximal mm Lt Great Saphenous Thigh - Proximal 6.38 mm Rt Great Saphenous Calf - Proximal mm Lt Great Saphenous Knee 6.22 mm Rt Sapheno-Popliteal Junction mm Lt Great Saphenous Calf - Proximal 3.82 mm Rt Small Saphenous Proximal mm Lt Sapheno-Popliteal Junction mm Rt Small Saphenous Mid mm Lt Small Saphenous Proximal 1.23 mm Rt Anterior Accessory Proximal mm Lt Small Saphenous Mid 2.64 mm Rt Anterior Accessory Mid mm Lt Anterior Accessory Proximal mm Lt Anterior Accessory Mid mm Lt CFV Reflux Time 0.00 sec Lt SFJ Reflux Time 0.88 sec Lt GSV Thigh Reflux Time 0.00 sec Lt FV Mid Reflux Time 0.00 sec Lt GSV Knee Reflux Time 0.00 sec Lt GSV Calf Prx Reflux 0.21 sec Lt Popliteal Reflux Time 1.10 sec Lt SSV Prx Reflux 0.00 sec Lt SSV Mid Reflux 0.00 sec Right Value Left Value - FINDINGS: Patient positioning: Reflux testing is performed in steep reverse Trendelenburg position. Left: The common femoral, femoral, popliteal veins were evaluated with compression maneuvers. Chronic DVT in the left popliteal vein. No evidence of superficial vein thrombus on the left. On the left venous reflux noted in sapheno-femoral junction and popliteal vein. Limited visualization of calf segments due to tissue changes. CONCLUSIONS: Left GSV: Hemodynamically significant reflux in the left saphenofemoral junction. ATTESTATION: I have reviewed and interpreted the pertinent images and measurements of this study. I attest to the conclusions in the final report that is provided above. Electronically Signed By: Darwin Hickey MD 09/26/2024 7:30:30 AM FISH PEDDLER Procedure Note Darwin Hickey MD - 09/26/2024 Vascular & Vein Surgery [address] [place] [address]. [place] [address] Lower Extremity Venous Reflux Duplex Report Patient Name: BRENDA SALDIVAR B : 1980 (44y ) Study Date: 09/24/2024 2:59:39 PM Gender: F Glaze Supervisor: Location: [facility] Ref Provider: TORRIE CARTER Quality: Adequate Order Provider: TORRIE CARTER PROCEDURES: Vascular Report: Lower extremity venous valvular insufficiency or reflux evaluation isperformed with manual augmentation. Veins evaluated are sapheno-femoral junction, great saphenous, commonfemoral, femoral, profunda femoral, popliteal, sapheno-popliteal and small saphenous veinsbilaterally. Criteria for superficial vein reflux is retrograde blood flow greater than0.5 seconds in the standing position. INDICATIONS: Chronic LLE edema. HISTORY: Hyperlipidemia. Former smoker. COMPARISONS: The previous exam was completed on 05/22/23. MEASUREMENTS: Right Value LeftValue Rt Sapheno-Femoral Junction mm Lt Sapheno-FemoralJunction 10.31 mm Rt Great Saphenous Thigh - Proximal mm Lt Great Saphenous Thigh -Proximal 6.38 mm Rt Great Saphenous Calf - Proximal mm Lt Great Saphenous Knee6.22 mm Rt Sapheno-Popliteal Junction mm Lt Great Saphenous Calf -Proximal 3.82 mm Rt Small Saphenous Proximal mm Lt Sapheno-PoplitealJunction mm Rt Small Saphenous Mid mm Lt Small SaphenousProximal 1.23 mm Rt Anterior Accessory Proximal mm Lt Small Saphenous Mid2.64 mm Rt Anterior Accessory Mid mm Lt Anterior AccessoryProximal mm Lt Anterior Accessory Mid mm Lt CFV Reflux Time 0.00 sec Lt SFJ Reflux Time 0.88 sec Lt GSV Thigh Reflux Time 0.00 sec Lt FV Mid Reflux Time 0.00 sec Lt GSV Knee Reflux Time 0.00 sec Lt GSV Calf Prx Reflux 0.21 sec Lt Popliteal Reflux Time 1.10 sec Lt SSV Prx Reflux 0.00 sec Lt SSV Mid Reflux 0.00 sec Right Value LeftValue - FINDINGS: Patient positioning: Reflux testing is performed in steep reverse Trendelenburg position. Left: The common femoral, femoral, popliteal veins were evaluated withcompression maneuvers. Chronic DVT in the left popliteal vein. No evidence of superficial veinthrombus on the left. On the left venous reflux noted in sapheno-femoral junction andpopliteal vein. Limited visualization of calf segments due to tissue changes. CONCLUSIONS: Left GSV: Hemodynamically significant reflux in the left saphenofemoraljunction. ATTESTATION: I have reviewed and interpreted the pertinent images and measurements ofthis study. I attest to the conclusions in the final report that is provided above. Electronically Signed By: Darwin Hickey MD 09/26/2024 7:30:30 AM FISH PEDDLER us Torrie Carter NP IMG US PROCEDURES Final Result * Thyroid Function [place] (09/13/2024 10:06 AM FISH PEDDLER) TSH 3.04 mIU/L [facility] Comment: Reference Range > or = 20 Years 0.40-4.50 Ranges First trimester 0.26-2.66 Second trimester 0.55-2.73 Third trimester 0.43-2.91 Blood 09/13/2024 10:0 6 AM FISH PEDDLER 09/13/2024 10:07 AM FISH PEDDLER Narrative [facility] - 09/14/2024 8:29 AM FISH PEDDLER FASTING:YES FASTING: YES Torrie Carter NP LAB BLOOD ORDERABLES Final Resul t [facility] [address] [place] [address] * CBC with auto differential (09/13/2024 10:06 AM FISH PEDDLER) WBC 6.9 3.8 - 10.8 Thousand/u L [facility] RBC, POC 3.86 3.80 - 5.10 Million/uL [facility] Hgb 11.9 11.7 - 15.5 g/dL [facility] Hct 36.6 35.0 - 45.0 % [facility] MCV 94.8 80.0 - 100.0 fL [facility] MCH 30.8 27.0 - 33.0 pg [facility] MCHC 32.5 32.0 - 36.0 g/dL [facility] Comment: For adults, a slight decrease in the calculated MCHC value (in the range of 30 to 32 g/dL) is most likely not clinically significant; however, it should be interpreted with caution in correlation with other red cell parameters and the patient's clinical condition. Rdw 13.2 11.0 - 15.0 % [facility] Platelets 274 140 - 400 Thousand/u L [facility] MPV 9.5 7.5 - 12.5 fL [facility] Neutrophils, abs 4,423 1,500 - 7,800 cells/uL [facility] Lymphocytes, abs 1,960 850 - 3,900 cells/uL [facility] Monocyte abs 338 200 - 950 cells/uL [facility] Eosinophils, abs 152 15 - 500 cells/uL [facility] Basophils, abs 28 0 - 200 cells/uL [facility] Neutrophils 64.1 % [facility] Lymphocyte pct 28.4 % [facility] Monocytes 4.9 % [facility] Eosinophils 2.2 % [facility] Basophils 0.4 % [facility] Blood 09/13/2024 10:0 6 AM FISH PEDDLER 09/13/2024 10:07 AM FISH PEDDLER Narrative [facility] - 09/14/2024 8:29 AM FISH PEDDLER FASTING:YES FASTING: YES Torrie Carter NP LAB BLOOD ORDERABLES Final Resul t Performing Organization Address [facility] de Phone Number [facility] [address] [place] [address] * Hepatitis C antibody Blood (09/13/2024 10:06 AM FISH PEDDLER) Pathologist [facility] [place] Hep C Ab NON-REACTI VE NON-REACT [facility] Comment: HCV antibody was non-reactive. There is no laboratory evidence of HCV infection. In most cases, no further action is required. However, if recent HCV exposure is suspected, a test for HCV RNA (test code 14077) is suggested. For additional information please refer to http://education.Entrec/faq/AMK43j9 (This link is being provided for informational/ educational purposes only.) Blood 09/13/2024 10:0 6 AM FISH PEDDLER 09/13/2024 10:07 AM FISH PEDDLER Narrative [facility] - 09/14/2024 8:29 AM FISH PEDDLER FASTING:YES FASTING: YES us Torrie Carter NP LAB MICROBIOLOGY - GENERAL ORDER ELIZABETH Final Result Performing Organization Address [facility] de Phone Number [facility] [address] [place] [address] * (ABNORMAL) Vitamin D 25 hydroxy (09/13/2024 10:06 AM FISH PEDDLER) Pathologist [facility] [place] Vitamin D 25-OH 28(L) 30 - 100 ng/mL [facility] Comment: Vitamin D Status 25-OH Vitamin D: Deficiency: <20 ng/mL Insufficiency: 20 - 29 ng/mL Optimal: > or = 30 ng/mL For 25-OH Vitamin D testing on patients on D2-supplementation and patients for whom quantitation of D2 and D3 fractions is required, the [facility]TM) 25-OH VIT D, (D2,D3), LC/MS/MS is recommended: order code 94316 (patients >2yrs). See Note 1 Note 1 For additional information, please refer to http://education.[address]/faq/ZWV003 (This link is being provided for informational/ educational purposes only.) Blood 09/13/2024 10:0 6 AM FISH PEDDLER 09/13/2024 10:07 AM FISH PEDDLER Narrative [facility] - 09/14/2024 8:29 AM FISH PEDDLER FASTING:YES FASTING: YES Torrie Carter NP LAB BLOOD ORDERABLES Final Resul t [facility] [address] [place] [address] * Hemoglobin A1c (09/13/2024 10:06 AM FISH PEDDLER) Hgb A1C 5.3 <5.7 % of total [facility] Comment: For the purpose of screening for the presence of diabetes: <5.7% Consistent with the absence of diabetes 5.7-6.4% Consistent with increased risk for diabetes (prediabetes) > or =6.5% Consistent with diabetes This assay result is consistent with a decreased risk of diabetes. Currently, no consensus exists regarding use of hemoglobin A1c for diagnosis of diabetes in children. According to [place] Diabetes Association (ADA) guidelines, hemoglobin A1c <7.0% represents optimal control in non- diabetic patients. Different metrics may apply to specific patient populations. Standards of Medical Care in Diabetes(ADA). Blood 09/13/2024 10:0 6 AM FISH PEDDLER 09/13/2024 10:07 AM FISH PEDDLER Narrative [facility] - 09/14/2024 8:29 AM FISH PEDDLER FASTING:YES FASTING: YES us Torrie Carter NP LAB BLOOD ORDERABLES Final Resul t [facility] [address] [place] [address] * (ABNORMAL) Lipid panel (09/13/2024 10:06 AM FISH PEDDLER) [facility] Cholesterol 206(H) <200 mg/dL [facility] HDL 65 > OR = 50 mg/dL [facility] Triglycerides 83 <150 mg/dL [facility] LDL 123(H) mg/dL (calc) [facility] Comment: Reference range: <100 Desirable range <100 mg/dL for primary prevention; <70 mg/dL for patients with CHD or diabetic patients with > or = 2 CHD risk factors. LDL-C is now calculated using the Mildred calculation, which is a validated novel method providing better accuracy than the Friedewald equation in the estimation of LDL-C. Baldomero SOUZA et al. YOGESH. 2013;310(19): 9467-7391 (http://education.Bucmi.Gasngo/faq/ZIE191) Chol/HDL ratio 3.2 <5.0 (calc) [facility] Non-HDL, (LDL+VLDL) 141(H) <130 mg/dL (calc) [facility] Comment: For patients with diabetes plus 1 major ASCVD risk factor, treating to a non-HDL-C goal of <100 mg/dL (LDL-C of <70 mg/dL) is considered a therapeutic option. Blood 09/13/2024 10:0 6 AM FISH PEDDLER 09/13/2024 10:07 AM FISH PEDDLER Narrative [facility] - 09/14/2024 8:29 AM FISH PEDDLER FASTING:YES FASTING: YES us Torrie Carter INDUSTRIAL RELATIONS WORKER LAB BLOOD ORDERABLES Final Resul t [facility] [address] [address] * Comprehensive metabolic panel (09/13/2024 10:06 AM FISH PEDDLER) Pathologist [facility] [place] Glucose 77 65 - 99 mg/dL [facility] Comment: Fasting reference interval BUN 9 7 - 25 mg/dL [facility] Creatinine 0.68 0.50 - 0.99 mg/dL [facility] eGFR 109 > OR = 60 mL/min/1.7 3m2 [facility] BUN/creat ratio SEE NOTE: 6 - 22 (calc) [facility] Comment: Not Reported: BUN and Creatinine are within reference range. Sodium 139 135 - 146 mmol/L [facility] Potassium, pl 4.2 3.5 - 5.3 mmol/L [facility] Chloride 104 98 - 110 mmol/L [facility] CO2 26 20 - 32 mmol/L [facility] Calcium 9.1 8.6 - 10.2 mg/dL [facility] Protein, sr 6.7 6.1 - 8.1 g/dL [facility] Albumin 3.7 3.6 - 5.1 g/dL [facility] GLOBULIN 3.0 1.9 - 3.7 g/dL (calc) [facility] Alb/glob ratio 1.2 1.0 - 2.5 (calc) [facility] Bilirubin, total 0.4 0.2 - 1.2 mg/dL [facility] Alk phos 70 31 - 125 U/L [facility] AST 15 10 - 35 U/L [facility] ALT (SGPT) 13 6 - 29 U/L [facility] Blood 09/13/2024 10:0 6 AM FISH PEDDLER 09/13/2024 10:07 AM FISH PEDDLER Narrative [facility] - 09/14/2024 8:29 AM FISH PEDDLER FASTING:YES FASTING: YES us Torrie Carter NP LAB BLOOD ORDERABLES Final Resul t [facility] [address] [address] from Last 3 Months Insurance [facility] Care Teams Furniture Removalist Relationship Specialty Start Date End Date Torrie Carter NP [address] [place] [id number] PCP - General Family Medicine 09/10/24 [place] [address] [place] [address] Endocrinology 09/10/24 Brenda Esteban NP [address] [place] [address] Obstetrics and Gynecology 09/10/24
--- OUTSIDE RECORDS SUMMARY | 2024-11-14 00:48 | XMS_ITS | Referral Summary ---
Author Organization [facility] Address [address] [place] [address] Care Team Providers Care Supervisor Process Testing Name Role Phone Torrie Carter NP Primary Care Provider [phone] Torrie Miller MD Unavailable Brenda Esteban NP Unavailable Encounters Date Type Department Care Team Description 10/15/2024 9:30 AM SEAFOOD PROCESSOR Office Visit [facility] Vascular at [address] [place] [phone] Darwin Hickey MD Mixed hyperlipidemia (Primary Dx); Chronic deep vein thrombosis (DVT) of left popliteal vein (HCC); Saphenofemoral venous reflux 09/26/2024 Orders Only [facility] Primary Care at [address] [address] Torrie Carter NP Chronic deep vein thrombosis (DVT) of left popliteal vein (HCC) (Primary Dx); Saphenofemoral venous reflux 09/24/2024 3:00 PM SEAFOOD PROCESSOR Ancillary Procedure [facility] Vascular and Vein Surgery at [address] [place] [address] Swelling of left lower extremity 09/16/2024 Telephone [facility] Primary Care at [address] [address] Torrie Carter NP Test Results 09/10/2024 11:00 AM SEAFOOD PROCESSOR Office Visit [facility] Primary Care at [address] [phone] Torrie Carter NP Migraine with [...] in adult (HCC) from Last 3 Months Allergies No known active allergies Medications norethindrone-e .estradioL-iron (Blisovi Fe ,) 1 mg-20 mcg (21)/75 mg (7) per tablet Take 1 tablet by mouth daily Active levothyroxine (Synthroid) 125 mcg tablet Take 1 tablet (125 mcg total) by 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 I suspect majority [...] 06/09/2020 Assessment & Plan (09/10/2024 12:52 PM SEAFOOD PROCESSOR): Updated labs ordered. Hypomagnesemia 06/09/2020 Hypothyroidism 06/09/2020 Assessment & Plan (09/10/2024 12:52 PM SEAFOOD PROCESSOR): Follows with Dr Miller, making appt. Updated labs ordered and continuing Synthroid 125 mcg daily. Vitamin D deficiency 06/09/2020 Major depressive disorder 06/08/2019 Migraines 06/08/2019 Assessment & Plan (09/10/2024 12:53 PM SEAFOOD PROCESSOR): Migraines tend to be clustery in nature. Will have headache 5/7 days/week. Has tried Midrine, Ubrelvy, Imitrex, Imitrex IM, Nurtec, Topamax. On Propranolol 80 mg BID for heart rate and migraines but only helps with the heart rate portion. Discussed starting daily Amitriptyline or Nortriptyline, possibly Qulipta . Patient will consider. Spinal enthesopathy 05/02/2016 Acquired trigger finger 02/06/2014 Anxiety 01/10/2014 Overview (11/30/2016): Anxiety Immunizations Immunization Administration Dates Next Due Influenza, Quadrivalent, Split, Intramuscular Influenza, Unspecified 08/27/2024,06/25/2024 Social History Tobacco Use Types Packs/Day Years [...] on file Legal Sex Female 2:01 AM SEAFOOD PROCESSOR Gender Identity Not on file Sexual Orientation Not on file Last Filed Vital Signs Vital Sign Reading Time Taken Comments Blood Pressure 138/85 10/15/2024 9:41 AM SEAFOOD PROCESSOR Pulse 77 10/15/2024 9:41 AM SEAFOOD PROCESSOR Temperature 37 C (98.6 F) 09/10/2024 11:04 AM SEAFOOD PROCESSOR Respiratory Rate - - Oxygen Saturation 96% 10/15/2024 9:41 AM SEAFOOD PROCESSOR Inhaled Oxygen Concentration - - Weight 117 kg (258 lb) 10/15/2024 9:41 AM SEAFOOD PROCESSOR Height 154.9 cm (5' 1 ) 10/15/2024 9:41 AM SEAFOOD PROCESSOR Body Mass Index 48.75 10/15/2024 9:41 AM SEAFOOD PROCESSOR Plan of Treatment Not on file Procedures Procedure Name Priority Date/Time Associated Diagnosis Comments US VEIN DUPLEX REFLUX LEFT Schedule Routine, Read Routine (OP Routine) 09/24/2024 3:20 PM SEAFOOD PROCESSOR Swelling of left lower extremity VITAMIN D 25 HYDROXY Routine 09/13/2024 10:06 AM SEAFOOD PROCESSOR Vitamin D deficiency THYROID FUNCTION CASCADE Routine 09/13/2024 10:06 AM SEAFOOD PROCESSOR Acquired hypothyroidism LIPID PANEL Routine 09/13/2024 10:06 AM SEAFOOD PROCESSOR Mixed hyperlipidemia HEMOGLOBIN A1C Routine 09/13/2024 10:06 AM SEAFOOD PROCESSOR Encounter for screening examination for intermediate hyperglycemia and diabetes mellitus COMPREHENSIVE METABOLIC PANEL Routine 09/13/2024 10:06 AM SEAFOOD PROCESSOR Mixed hyperlipidemia CBC WITH AUTO DIFFERENTIAL Routine 09/13/2024 10:06 AM SEAFOOD PROCESSOR Mixed hyperlipidemia HEPATITIS C ANTIBODY Routine 09/13/2024 10:06 AM SEAFOOD PROCESSOR Encounter for hepatitis C screening test for low risk patient from Last 3 Months Results * US Venous Reflux Left (09/24/2024 3:20 PM SEAFOOD PROCESSOR) LV EF % CONS SCIMAGE Anatomical Region Laterality Modality Vascular Left Ultrasound 09/24/2024 2:59 PM SEAFOOD PROCESSOR Narrative 09/26/2024 7:31 AM SEAFOOD PROCESSOR Vascular & Vein Surgery [address] [facility] [place] [address] Lower Extremity Venous Reflux Duplex Report Patient Name: BRENDA SALDIVAR B : 1980 (44y ) Study Date: 09/24/2024 2:59:39 PM Gender: F Director Digital Catalogue: SESAR Location: [facility] Ref Provider: TORRIE CARTER Quality: [...] By: Darwin Hickey MD 09/26/2024 7:30:30 AM SEAFOOD PROCESSOR Procedure Note Darwin Hickey MD - 09/26/2024 Vascular & Vein Surgery [address] [place] [address] Lower Extremity Venous Reflux Duplex Report Patient Name: BRENDA SALDIAVR B : 1980 (44y ) Study Date: 09/24/2024 2:59:39 PM Gender: F Director Digital Catalogue: Location: [facility] Ref Provider: TORRIE CARTER Quality: [...] By: Darwin Hickey MD 09/26/2024 7:30:30 AM SEAFOOD PROCESSOR us Torrie Carter CONE BAKER MACHINE IMG US PROCEDURES Final Result * Thyroid Function [place] (09/13/2024 10:06 AM SEAFOOD PROCESSOR) Pathologist [facility] TSH 3.04 mIU/L [facility] Comment: Reference Range > or = 20 Years 0.40-4.50 Ranges First trimester 0.26-2.66 Second trimester 0.55-2.73 Third trimester 0.43-2.91 Blood 09/13/2024 10:0 6 AM SEAFOOD PROCESSOR 09/13/2024 10:07 AM SEAFOOD PROCESSOR Narrative [facility] - 09/14/2024 8:29 AM SEAFOOD PROCESSOR FASTING:YES FASTING: YES Torrie Carter NP LAB BLOOD ORDERABLES Final Resul t [facility] [address] [place] [address] * CBC with auto differential (09/13/2024 10:06 AM SEAFOOD PROCESSOR) Pathologist [facility] WBC 6.9 3.8 - 10.8 Thousand/u L [...] [facility] Blood 09/13/2024 10:0 6 AM SEAFOOD PROCESSOR 09/13/2024 10:07 AM SEAFOOD PROCESSOR Narrative [facility] - 09/14/2024 8:29 AM SEAFOOD PROCESSOR FASTING:YES FASTING: YES Torrie Carter NP LAB BLOOD ORDERABLES Final Resul t [facility] [address] [place] [address] * Hepatitis C antibody Blood (09/13/2024 10:06 AM SEAFOOD PROCESSOR) Hep C Ab NON-REACTI VE NON-REACT LB [facility] Comment: HCV antibody was non-reactive. There is no laboratory evidence of HCV infection. In most cases, no further action is required. However, if recent HCV exposure is suspected, a test for HCV RNA (test code 98524) is suggested. For additional information please refer to http://education.IS Decisions/faq/POE22y2 (This link is being provided for informational/ educational purposes only.) Blood 09/13/2024 10:0 6 AM SEAFOOD PROCESSOR 09/13/2024 10:07 AM SEAFOOD PROCESSOR Narrative [facility] - 09/14/2024 8:29 AM SEAFOOD PROCESSOR FASTING:YES FASTING: YES us Torrie Carter NP LAB MICROBIOLOGY - GENERAL ORDER ELIZABETH Final Result Performing Organization Address [facility] Co de Phone Number [employer] [facility] [address] [place] [address] * (ABNORMAL) Vitamin D 25 hydroxy (09/13/2024 10:06 AM SEAFOOD PROCESSOR) Pathologist [facility] Vitamin D 25-OH 28(L) 30 - 100 ng/mL [facility] Comment: Vitamin D Status 25-OH Vitamin D: Deficiency: <20 ng/mL Insufficiency: 20 - 29 ng/mL Optimal: > or = 30 ng/mL For 25-OH Vitamin D testing on patients on D2-supplementation and patients for whom quantitation of D2 and D3 fractions is required, the QuestAssureD(TM) 25-OH VIT D, (D2,D3), LC/MS/MS is recommended: order code 95701 (patients >2yrs). See Note 1 Note 1 For additional information, please refer to http://education.HylioSoft.Five-Thirty/faq/PZM808 (This link is being provided for informational/ educational purposes only.) Blood 09/13/2024 10:0 6 AM SEAFOOD PROCESSOR 09/13/2024 10:07 AM SEAFOOD PROCESSOR Narrative [facility] - 09/14/2024 8:29 AM SEAFOOD PROCESSOR FASTING:YES FASTING: YES us Torrie Carter NP LAB BLOOD ORDERABLES Final Resul t Performing Organization Address [facility] Co de Phone Number [facility] [address] [facility] [place] [address] * Hemoglobin A1c (09/13/2024 10:06 AM SEAFOOD PROCESSOR) Pathologist [facility] Hgb A1C 5.3 <5.7 % of total Hgb [facility] Comment: For the purpose of screening for the presence of diabetes: <5.7% Consistent with the absence of diabetes 5.7-6.4% Consistent with increased risk for diabetes (prediabetes) > or =6.5% Consistent with diabetes This assay result is consistent with a decreased risk of diabetes. Currently, no consensus exists regarding use of hemoglobin A1c for diagnosis of diabetes in children. According to [place] Diabetes Association (ADA) guidelines, hemoglobin A1c <7.0% represents optimal control in non- diabetic patients. Different metrics may apply to specific patient populations. Standards of Medical Care in Diabetes(ADA). Blood 09/13/2024 10:0 6 AM SEAFOOD PROCESSOR 09/13/2024 10:07 AM SEAFOOD PROCESSOR Narrative [facility] - 09/14/2024 8:29 AM SEAFOOD PROCESSOR FASTING:YES FASTING: YES us Torrie Carter NP LAB BLOOD ORDERABLES Final Resul t [facility] [address] [place] [address] * (ABNORMAL) Lipid panel (09/13/2024 10:06 AM SEAFOOD PROCESSOR) Pathologist [facility] Cholesterol 206(H) <200 mg/dL [facility] [...] factors. LDL-C is now calculated using the Baldomero-Chana calculation, which is a validated novel method providing better accuracy than the Friedewald equation in the estimation of LDL-C. Baldomero SOUZA et al. YOGESH. 2013;310(19): 3495-9101 (http://education.HylioSoft.Five-Thirty/faq/RUC019) Chol/HDL ratio 3.2 <5.0 (calc) [facility] Non-HDL, (LDL+VLDL) 141(H) <130 mg/dL (calc) [facility] Comment: For patients with diabetes plus 1 major ASCVD risk factor, treating to a non-HDL-C goal of <100 mg/dL (LDL-C of <70 mg/dL) is considered a therapeutic option. Blood 09/13/2024 10:0 6 AM SEAFOOD PROCESSOR 09/13/2024 10:07 AM SEAFOOD PROCESSOR Narrative [facility] - 09/14/2024 8:29 AM SEAFOOD PROCESSOR FASTING:YES FASTING: YES us Torrie Carter CONE BAKER MACHINE LAB BLOOD ORDERABLES Final Resul t [facility] [address] [place] [address] * Comprehensive metabolic panel (09/13/2024 10:06 AM SEAFOOD PROCESSOR) Glucose 77 65 - 99 mg/dL [facility] Blood 09/13/2024 10:0 6 AM SEAFOOD PROCESSOR 09/13/2024 10:07 AM SEAFOOD PROCESSOR Narrative [facility] - 09/14/2024 8:29 AM SEAFOOD PROCESSOR FASTING:YES FASTING: YES us Torrie Carter CONE BAKER MACHINE LAB BLOOD ORDERABLES Final Resul t [facility] [address] [place] [address] from Last 3 Months Insurance Care Teams Supervisor Process Testing Relationship Specialty Start Date End Date Torrie Carter NP [address] [address] PCP - General Family Medicine 09/10/24 [place] [address] [place] [address] Endocrinology 09/10/24 Brenda Esteban NP [address] [place] [address] Obstetrics and Gynecology 09/10/24
[2024-11-14 09:22] LABS: BEDSIDEPREGUCG Negative (Negative)
[2024-11-14] MEDS: LACTATED RINGERS 1,000 ML 150 ML IV CONT (09:28)
[2024-11-14 09:30] VITALS: BP 129/98; PULSE 78; RESP 18; TEMP 36.3; O2SAT 99
--- NOTE | 2024-11-14 09:58 | P.PNAN_ITS ---
Anes - Initial Pre Proc Eval Procedure: Operation Date: 11/14/24 10:30 Proposed Procedures p Screening Colonoscopy - Trino Allred MD Date/Time: 11/14/24 09:58 Surgeon: Trino Allred MD Pre Op Diagnosis: screening colon Patient Data Age: 44 Gender: F Height: 1.55 m Weight: 113.5 kg Last Vital Signs Temp 97.4 F L 11/14/24 09:30 Pulse 78 11/14/24 09:30 Resp 18 11/14/24 09:30 BP 129/98 H 11/14/24 09:30 Pulse Ox 99 11/14/24 09:30 O2 Del Method Room Air 11/14/24 09:30 Allergies Allergy/AdvReac Type Severity Reaction Status Date / Time No Known Allergies Allergy Mild Verified 11/14/24 09:12 Home Medications ?Medication ?Instructions ?Recorded ?Confirmed ?Type levothyroxine 125 mcg tablet 125 mcg PO DAILY 11/06/24 11/14/24 History (Euthyrox) norethindrone 1 mg-ethinyl 1 tablet PO DAILY 11/06/24 11/14/24 History estradiol 20 mcg (21)-iron 75 mg (7) tablet (Blisovi Fe 09/15 (28)) propranolol 80 mg tablet 80 mg PO Q12H 11/06/24 11/14/24 History vilazodone 40 mg tablet 40 mg PO DAILY 11/06/24 11/14/24 History Laboratory Tests 11/14/24 09:20 POC Urine HCG, Qual Negative (Negative) Patient hx anesthesia problems: none Family hx anesthesia problems: none Results Review: All pre-operative results and documents have been reviewed as part of the pre- operative evaluation. [facility] Social History Social History Smoking packs per day: 0.5 Smoking cigarettes per day: 10.0 Years smoked: 20 Smoking pack-years: 10.00 Smoking status: Former smoker Tobacco type: cigarettes Alcohol intake: current Living arrangements: alone Anes - Eval Final PreProcedure Day of Procedure 11/14/24 09:58 Patient weight: morbidly obese Heart: regular rate and rhythm Lungs: clear to auscultation Airway: Mallampati scale class II Neurological: alert and oriented Last oral intake: >/= 8 hours ASA classification: III Emergent: no Anesthetic plan: proceed Anesthesia type and monitoring: general GIVS and standard monitoring Results Review: All pre-operative results and documents have been reviewed as part of the pre- operative evaluation. Informed Consent: The patient's anesthetic plan and its attendant risks and benefits were discussed with the patient/family/POA. Questions were solicited and answers provided to the satisfaction of the patient/family/POA.
--- NOTE | 2024-11-14 10:13 | PM.IMHP ---
H&P: HPI History of Present Illness Date/Time: 11/14/24 10:13 Chief Complaint: Screening colonoscopy Narrative: This is the patient's first colonoscopy. There are no GI symptoms and there is no family history of colorectal cancer. Review of Systems Review of Systems: All systems reviewed & are unremarkable except as noted in HPI and below PENDING SALE TO [facility] Social History Social History Smoking packs per day: 0.5 Smoking cigarettes per day: 10.0 Years smoked: 20 Smoking pack-years: 10.00 Smoking status: Former smoker Tobacco type: cigarettes Alcohol intake: current Living arrangements: alone Meds Home Medications and Allergies Home Medications ?Medication ?Instructions ?Recorded ?Confirmed ?Type levothyroxine 125 mcg tablet 125 mcg PO DAILY 11/06/24 11/14/24 History (Euthyrox) norethindrone 1 mg-ethinyl 1 tablet PO DAILY 11/06/24 11/14/24 History estradiol 20 mcg (21)-iron 75 mg (7) tablet (Blisovi Fe 09/15 ()) propranolol 80 mg tablet 80 mg PO Q12H 11/06/24 11/14/24 History vilazodone 40 mg tablet 40 mg PO DAILY 11/06/24 11/14/24 History Allergies Allergy/AdvReac Type Severity Reaction Status Date / Time No Known Allergies Allergy Mild Verified 11/14/24 09:12 Vital Signs Vital Signs - 24 hr 11/14/24 09:30 Temperature 97.4 F L Pulse Rate 78 Respiratory Rate 18 Blood Pressure 129/98 H Pulse Oximetry 99 Oxygen Delivery Room Air Exam Const: General: cooperative and healthy appearing Resp: Effort & Inspection: normal respiratory effort and able to speak in complete sentences Auscultation: clear to auscultation bilaterally Cardio: Rate: regular rate Rhythm: regular rhythm GI: Inspection: normal to inspection GI Palp: No No hepatosplenomegaly present Auscultation: normal bowel sounds Rectal Exam: deferred Skin: General skin exam: normal color Psych: Appearance: grossly normal Mental Status: mental status grossly normal Assessment and Plan Assessment and plan (1) Encounter for screening colonoscopy: Code(s): Z12.11 - Encounter for screening for malignant neoplasm of colon Status: Acute Assessment and Plan: The patient is deemed a good candidate for the procedure. Consent signed. Will proceed.
[2024-11-14 10:37] VITALS: BP 122/79; PULSE 73; RESP 20; O2SAT 100
[2024-11-14 10:46] VITALS: BP 123/82; PULSE 71; RESP 21; O2SAT 100
[2024-11-14 10:56] VITALS: BP 112/72; PULSE 74; RESP 24; O2SAT 100
== END 2024-11-14 11:04 | disposition home or self-care (01) ==
PROVIDERS: Anesthesiology; PCP Nurse Practitioner Family; Referring Provider Student in an Organized Health Care Education/Training Program; Visit Provider Internal Medicine Gastroenterology
PROC: 0DJD8ZZ Inspection of Lower Intestinal Tract, Via Natural or Artificial Opening Endoscopic (ICD-10-PCS; CPT 45378; principal; 2024-11-14 10:30)
DX: Z12.11 Encounter for screening for malignant neoplasm of colon (principal); K57.30 Diverticulosis of large intestine without perforation or abscess without bleeding; Z87.891 Personal history of nicotine dependence; E66.01 Morbid (severe) obesity due to excess calories; Z68.42 Body mass index [BMI] 45.0-49.9, adult
CPT/HCPCS: 45378; J2003; J2704; J7120